=== PATIENT | female | born 1990 | race Two or more races ===

== ENCOUNTER 2022-12-13 17:09 | Emergency (ER) | payer SELFPAY ==
[2022-12-13 17:13] VITALS: BP 126/86; PULSE 91; RESP 16; TEMP 36.1; O2SAT 99; BMI 48.6
--- NOTE | 2022-12-13 17:15 | ED.ABDPAIN ---
HPI - Abdominal Pain General Chief Complaint: Abdominal Pain <STACY Reagan - Last Filed: 12/13/22 17:18> Stated Complaint: headaches <STACY Reagan - Last Filed: 12/13/22 17:18> Time Seen by Provider: 12/13/22 22:05 <STACY Reagan - Last Filed: 12/13/22 17:18> Source: patient <Ebenezer Arnold MD - Last Filed: 12/13/22 22:19> Mode of arrival: ambulatory <Ebenezer Arnold MD - Last Filed: 12/13/22 22:19> Limitations: no limitations <Ebenezer Arnold MD - Last Filed: 12/13/22 22:19> Related Data Allergies/Adverse Reactions: Allergies Allergy/AdvReac Type Severity Reaction Status Date / Time No Known Allergies Allergy Verified 12/13/22 17:17 <STACY Reagan - Last Filed: 12/13/22 17:18> [facility] Social History Social History: Social History Advance Directives: No Advance Directives Information Provided: No <STACY Reagan - Last Filed: 12/13/22 17:18> Physical Exam ED Vital Signs: Vital Signs - 24 hr 12/13/22 17:13 Temperature 97.0 F Pulse Rate 91 Respiratory Rate 16 Blood Pressure 126/86 Pulse Oximetry 99 Oxygen Delivery Method Room Air BMI result Body Mass Index 48.6 <STACY Reagan - Last Filed: 12/13/22 17:18> Vital Signs - 24 hr 12/13/22 17:13 Temperature 97.0 F Pulse Rate 91 Respiratory Rate 16 Blood Pressure 126/86 Pulse Oximetry 99 Oxygen Delivery Method Room Air BMI result Body Mass Index 48.6 <Ebenezer Arnold MD - Last Filed: 12/13/22 22:19> Course Course Course Narrative: RME - 18-jxdq[age]gbc-female presenting today with complaints of suprapubic pressure and urinary frequency x 3 weeks. UA and HCG test ordered. VSS in triage <STACY Reagan - Last Filed: 12/13/22 17:18> Medical Decision Making Lab Data Result Diagrams: 12/13/22 17:48 12/13/22 17:48 <STACY Reagan - Last Filed: 12/13/22 17:18> Labs: Lab Results 12/13/22 12/13/22 12/13/22 Range/Units 17:48 17:48 17:48 WBC 8.4 (4.8-10.8) X10*3/uL RBC 6.12 H (4.20-5.50) X10*6/uL Hgb 13.5 (12.0-16.0) g/dl Hct 42.5 (37.0-47.0) % MCV 69.4 L (80.0-98.0) fL MCH 22.1 L (27.0-33.0) pg MCHC 31.8 (31.0-35.0) g/dl RDW 18.2 H (11.0-16.0) % Plt Count 353 (160-400) X10*3/uL MPV 10.2 (9.4-12.3) fL Immature Gran % (Auto) 0.4 (0.0-0.4) % Neut % (Auto) 58.8 (45-73) % Lymph % (Auto) 28.7 (20-40) % [place] % (Auto) 8.5 (2-11) % Eos % (Auto) 3.0 (0-4) % Baso % (Auto) 0.6 (0-2) % Lymph # (Auto) 2.4 (1.2-4.9) X10*3/uL [place] # (Auto) 0.7 (0.1-1.2) X10*3/uL Eos # (Auto) 0.3 (0.0-0.4) X10*3/uL Baso # (Auto) 0.1 (0.0-0.2) X10*3/uL Abs Immat Gran (auto) 0.03 (0.00-0.03) X10*3/uL Absolute Neuts (auto) 5.0 (2.0-8.3) x10*3/uL Absolute Nucleated RBC 0.000 (0.0-0.012) X10*3/uL Nucleated RBC % (auto) 0.0 (0.0-0.2) /100WBC Sodium 139 (135-145) mmol/L Potassium 4.4 (3.3-5.1) mmol/L Chloride 105 (96-108) mmol/L Carbon Dioxide 27 (22-29) mmol/L Anion Gap 11 L (12-20) BUN 13 (9-16) mg/dL Creatinine 0.84 (0.5-1.4) mg/dL Estim Creat Clear Calc 123.4 Estimated GFR > 60 Random Glucose 152 H (60-115) mg/dL Calcium 9.4 (8.4-10.2) mg/dL Magnesium 1.8 (1.6-2.6) mg/dL Total Bilirubin 0.4 (0.0-1.0) mg/dL Direct Bilirubin < 0.2 (0.0-0.5) mg/dL AST 18 (5-31) U/L ALT 26 (0-31) U/L Alkaline Phosphatase 57 (39-117) U/L Total Protein 7.1 (6.5-8.0) g/dL Albumin 4.3 (3.5-5.0) g/dL Urine Color Yellow Urine Appearance Clear Urine pH 5.5 (5.0-9.0) Ur Specific [place] 1.015 (1.005-1.025) Urine Protein Negative (Neg-Trace) mg/dL Urine Glucose (UA) Negative (Negative) mg/dL Urine Ketones Negative (Negative) mg/dL Urine Blood Moderate (2+) H (Negative) Urine Nitrite Negative (Negative) Ur Leukocyte Esterase Negative (Negative) Urine RBC 0-2 (0-2) /HPF Urine WBC 0-5 (0-5) /HPF Ur Squamous Epith Cells 3-5 (0-2) /HPF Urine Bacteria Trace (None Seen) Hyaline Casts 0-2 (0-2) /LPF Urine Test (NEGATIVE) 12/13/22 Range/Units 17:48 WBC (4.8-10.8) X10*3/uL RBC (4.20-5.50) X10*6/uL Hgb (12.0-16.0) g/dl Hct (37.0-47.0) % MCV (80.0-98.0) fL MCH (27.0-33.0) pg MCHC (31.0-35.0) g/dl RDW (11.0-16.0) % Plt Count (160-400) X10*3/uL MPV (9.4-12.3) fL Immature Gran % (Auto) (0.0-0.4) % Neut % (Auto) (45-73) % Lymph % (Auto) (20-40) % [place] % (Auto) (2-11) % Eos % (Auto) (0-4) % Baso % (Auto) (0-2) % Lymph # (Auto) (1.2-4.9) X10*3/uL [place] # (Auto) (0.1-1.2) X10*3/uL Eos # (Auto) (0.0-0.4) X10*3/uL Baso # (Auto) (0.0-0.2) X10*3/uL Abs Immat Gran (auto) (0.00-0.03) X10*3/uL Absolute Neuts (auto) (2.0-8.3) x10*3/uL Absolute Nucleated RBC (0.0-0.012) X10*3/uL Nucleated RBC % (auto) (0.0-0.2) /100WBC Sodium (135-145) mmol/L Potassium (3.3-5.1) mmol/L Chloride (96-108) mmol/L Carbon Dioxide (22-29) mmol/L Anion Gap (12-20) BUN (9-16) mg/dL Creatinine (0.5-1.4) mg/dL Estim Creat Clear Calc Estimated GFR Random Glucose (60-115) mg/dL Calcium (8.4-10.2) mg/dL Magnesium (1.6-2.6) mg/dL Total Bilirubin (0.0-1.0) mg/dL Direct Bilirubin (0.0-0.5) mg/dL AST (5-31) U/L ALT (0-31) U/L Alkaline Phosphatase (39-117) U/L Total Protein (6.5-8.0) g/dL Albumin (3.5-5.0) g/dL Urine Color Urine Appearance Urine pH (5.0-9.0) Ur Specific [place] (1.005-1.025) Urine Protein (Neg-Trace) mg/dL Urine Glucose (UA) (Negative) mg/dL Urine Ketones (Negative) mg/dL Urine Blood (Negative) Urine Nitrite (Negative) Ur Leukocyte Esterase (Negative) Urine RBC (0-2) /HPF Urine WBC (0-5) /HPF Ur Squamous Epith Cells (0-2) /HPF Urine Bacteria (None Seen) Hyaline Casts (0-2) /LPF Urine Test NEGATIVE (NEGATIVE) <STACY Reagan - Last Filed: 12/13/22 17:18> Lab Results 12/13/22 12/13/22 12/13/22 Range/Units 17:48 17:48 17:48 WBC 8.4 (4.8-10.8) X10*3/uL RBC 6.12 H (4.20-5.50) X10*6/uL Hgb 13.5 (12.0-16.0) g/dl Hct 42.5 (37.0-47.0) % MCV 69.4 L (80.0-98.0) fL MCH 22.1 L (27.0-33.0) pg MCHC 31.8 (31.0-35.0) g/dl RDW 18.2 H (11.0-16.0) % Plt Count 353 (160-400) X10*3/uL MPV 10.2 (9.4-12.3) fL Immature Gran % (Auto) 0.4 (0.0-0.4) % Neut % (Auto) 58.8 (45-73) % Lymph % (Auto) 28.7 (20-40) % [place] % (Auto) 8.5 (2-11) % Eos % (Auto) 3.0 (0-4) % Baso % (Auto) 0.6 (0-2) % Lymph # (Auto) 2.4 (1.2-4.9) X10*3/uL [place] # (Auto) 0.7 (0.1-1.2) X10*3/uL Eos # (Auto) 0.3 (0.0-0.4) X10*3/uL Baso # (Auto) 0.1 (0.0-0.2) X10*3/uL Abs Immat Gran (auto) 0.03 (0.00-0.03) X10*3/uL Absolute Neuts (auto) 5.0 (2.0-8.3) x10*3/uL Absolute Nucleated RBC 0.000 (0.0-0.012) X10*3/uL Nucleated RBC % (auto) 0.0 (0.0-0.2) /100WBC Sodium 139 (135-145) mmol/L Potassium 4.4 (3.3-5.1) mmol/L Chloride 105 (96-108) mmol/L Carbon Dioxide 27 (22-29) mmol/L Anion Gap 11 L (12-20) BUN 13 (9-16) mg/dL Creatinine 0.84 (0.5-1.4) mg/dL Estim Creat Clear Calc 123.4 Estimated GFR > 60 Random Glucose 152 H (60-115) mg/dL Calcium 9.4 (8.4-10.2) mg/dL Magnesium 1.8 (1.6-2.6) mg/dL Total Bilirubin 0.4 (0.0-1.0) mg/dL Direct Bilirubin < 0.2 (0.0-0.5) mg/dL AST 18 (5-31) U/L ALT 26 (0-31) U/L Alkaline Phosphatase 57 (39-117) U/L Total Protein 7.1 (6.5-8.0) g/dL Albumin 4.3 (3.5-5.0) g/dL Urine Color Yellow Urine Appearance Clear Urine pH 5.5 (5.0-9.0) Ur Specific [place] 1.015 (1.005-1.025) Urine Protein Negative (Neg-Trace) mg/dL Urine Glucose (UA) Negative (Negative) mg/dL Urine Ketones Negative (Negative) mg/dL Urine Blood Moderate (2+) H (Negative) Urine Nitrite Negative (Negative) Ur Leukocyte Esterase Negative (Negative) Urine RBC 0-2 (0-2) /HPF Urine WBC 0-5 (0-5) /HPF Ur Squamous Epith Cells 3-5 (0-2) /HPF Urine Bacteria Trace (None Seen) Hyaline Casts 0-2 (0-2) /LPF Urine Test (NEGATIVE) 12/13/22 Range/Units 17:48 WBC (4.8-10.8) X10*3/uL RBC (4.20-5.50) X10*6/uL Hgb (12.0-16.0) g/dl Hct (37.0-47.0) % MCV (80.0-98.0) fL MCH (27.0-33.0) pg MCHC (31.0-35.0) g/dl RDW (11.0-16.0) % Plt Count (160-400) X10*3/uL MPV (9.4-12.3) fL Immature Gran % (Auto) (0.0-0.4) % Neut % (Auto) (45-73) % Lymph % (Auto) (20-40) % [place] % (Auto) (2-11) % Eos % (Auto) (0-4) % Baso % (Auto) (0-2) % Lymph # (Auto) (1.2-4.9) X10*3/uL [place] # (Auto) (0.1-1.2) X10*3/uL Eos # (Auto) (0.0-0.4) X10*3/uL Baso # (Auto) (0.0-0.2) X10*3/uL Abs Immat Gran (auto) (0.00-0.03) X10*3/uL Absolute Neuts (auto) (2.0-8.3) x10*3/uL Absolute Nucleated RBC (0.0-0.012) X10*3/uL Nucleated RBC % (auto) (0.0-0.2) /100WBC Sodium (135-145) mmol/L Potassium (3.3-5.1) mmol/L Chloride (96-108) mmol/L Carbon Dioxide (22-29) mmol/L Anion Gap (12-20) BUN (9-16) mg/dL Creatinine (0.5-1.4) mg/dL Estim Creat Clear Calc Estimated GFR Random Glucose (60-115) mg/dL Calcium (8.4-10.2) mg/dL Magnesium (1.6-2.6) mg/dL Total Bilirubin (0.0-1.0) mg/dL Direct Bilirubin (0.0-0.5) mg/dL AST (5-31) U/L ALT (0-31) U/L Alkaline Phosphatase (39-117) U/L Total Protein (6.5-8.0) g/dL Albumin (3.5-5.0) g/dL Urine Color Urine Appearance Urine pH (5.0-9.0) Ur Specific [place] (1.005-1.025) Urine Protein (Neg-Trace) mg/dL Urine Glucose (UA) (Negative) mg/dL Urine Ketones (Negative) mg/dL Urine Blood (Negative) Urine Nitrite (Negative) Ur Leukocyte Esterase (Negative) Urine RBC (0-2) /HPF Urine WBC (0-5) /HPF Ur Squamous Epith Cells (0-2) /HPF Urine Bacteria (None Seen) Hyaline Casts (0-2) /LPF Urine Test NEGATIVE (NEGATIVE) <Ebenezer Arnold MD - Last Filed: 12/13/22 22:19>
[2022-12-13 17:56] LABS: MANUAL DIFF FLAG NO
[2022-12-13 18:03] LABS: Appearance Urine Clear; Color Urine Yellow; Glucose Urine UA Negative (Negative); Leukocyte Esterase Urine Negative (Negative); Nitrite Urine Negative (Negative); PH 5.5 (5.0-9.0); Specific Gravity - Urine 1.015 (1.005-1.025); UMIC TRIGGER UACC YES; Urine Blood Moderate (2+) (Negative); Urine Ketones Negative (Negative); Urine Protein Negative (Neg-Trace)
[2022-12-13 18:04] LABS: Basophils Absolute Auto 0.1 X10*3/uL (0.0-0.2); Basophils Percent Auto 0.6 % (0-2); Eosinophils Absolute Auto 0.3 X10*3/uL (0.0-0.4); Hematocrit 42.5 % (37.0-47.0); Hemoglobin 13.5 g/dl (12.0-16.0); Imm Gran Abs Auto 0.03 X10*3/uL (0.00-0.03); Imm Gran Pct Auto 0.4 % (0.0-0.4); Lymphocytes Absolute Auto 2.4 X10*3/uL (1.2-4.9); Lymphocytes Percent Auto 28.7 % (20-40); Mean Corpuscular HGB Conc 31.8 g/dl (31.0-35.0); Mean Corpuscular Hemoglobin 22.1 pg (27.0-33.0); Mean Corpuscular Volume 69.4 fL (80.0-98.0); Mean Platelet Volume 10.2 fL (9.4-12.3); Monocytes Absolute Auto 0.7 X10*3/uL (0.1-1.2); Monocytes Percent Auto 8.5 % (2-11); Neutrophils Percent Auto 58.8 % (45-73); Platelet Count 353 X10*3/uL (160-400); Red Blood Count 6.12 X10*6/uL (4.20-5.50); Red Cell Distribution Width 18.2 % (11.0-16.0); White Blood Count 8.4 X10*3/uL (4.8-10.8)
[2022-12-13 18:06] LABS: UPreg QC Valid YES; Urine Pregnancy NEGATIVE (NEGATIVE)
[2022-12-13 18:15] LABS: Bacteria Urine Trace (None Seen); Hyaline Casts Urine 0-2 /LPF (0-2); RBC Urine 0-2 /HPF (0-2); WBC Urine 0-5 /HPF (0-5)
[2022-12-13 18:16] LABS: Alanine Aminotransferase 26 U/L (0-31); Albumin Level 4.3 g/dL (3.5-5.0); Alkaline Phosphatase 57 U/L (39-117); Anion Gap 11 (12-20); Aspartate Amino Transferase 18 U/L (5-31); Bilirubin Direct < 0.2 mg/dL (0.0-0.5); Bilirubin Total 0.4 mg/dL (0.0-1.0); Blood Urea Nitrogen 13 mg/dL (9-16); Calcium 9.4 mg/dL (8.4-10.2); Carbon Dioxide 27 mmol/L (22-29); Chloride 105 mmol/L (96-108); Creatinine Clr Calc Pharmacy 123.4; Estimated Glomerular Filt Rate > 60; Glucose Random 152 mg/dL (60-115); Magnesium 1.8 mg/dL (1.6-2.6); Potassium 4.4 mmol/L (3.3-5.1); Sodium 139 mmol/L (135-145); Total Protein 7.1 g/dL (6.5-8.0)
--- NOTE | 2022-12-13 22:23 | ED_ITS ---
HPI - General Adult General Chief complaint: Abdominal Pain Stated complaint: headaches Time Seen by Provider: 12/13/22 22:05 Source: patient Mode of arrival: ambulatory Limitations: no limitations History of Present Illness HPI narrative: Patient with multiple problems with history of anxiety comes here for 3 weeks of occipital headache upper back pain increased urination jaw pain was seen at [facility] 3 weeks ago diagnosed with dizziness has not seen her PCP for a while no fever no chills no vomiting Related Data Previous Rx's Medication Instructions Recorded dmwlhdgwyy-zvfajcczaxicp-qgpwoiwp 1 cap PO Q6H PRN headache #20 caps 12/13/22 50 mg-300 mg-40 mg capsule (Fioricet) tramadol 50 mg tablet 50 mg PO Q6H PRN pain #20 tabs 12/13/22 Allergies Allergy/AdvReac Type Severity Reaction Status Date / Time No Known Allergies Allergy Verified 12/13/22 17:17 Review of Systems Review of Systems: Yes all other systems are reviewed and are negative [facility] Social History Social History Smoked in Last 30 Days: No Use of substances other than those prescribed or required for medical reasons: No Advance Directives: No Advance Directives Information Provided: No Physical Exam ED Vital Signs: Vital Signs - 24 hr 12/13/22 17:13 Temperature 97.0 F Pulse Rate 91 Respiratory Rate 16 Blood Pressure 126/86 Pulse Oximetry 99 Oxygen Delivery Method Room Air BMI result Body Mass Index 48.6 Appearance: Alert. Oriented X3. No acute distress. Anxious Eyes: PERRLA, No Nystagmus ENT: Pharynx normal. Oral Mucosa moist temporal artery nontender Neck: Normal inspection. Neck supple. CVS: Normal heart rate and rhythm. Pulses normal. Respiratory: No respiratory distress. Equal air entry bilateral, no wheezing/rales/rhonchi Abdomen: Soft and nontender. Bowel sounds are present, no mass palpable, no CVA tenderness Skin: Skin warm and dry. Normal skin color. Normal skin turgor. Extremities: No lower extremity edema. No calf tenderness back: Multiple trigger point tenderness upper back Neuro: Oriented X 3. No motor deficit. No sensory deficit.No cerebellar signs , cranial nerves II-XII intact Medications Administered Discontinued Medications Generic Name Dose Route Start Last Admin Trade Name Freq PRN Reason Stop Dose Admin Acetaminophen/Butalbital/Caffeine 1 tab 12/13/22 22:23 12/13/22 22:39 Butalb/Acetamin/Caff 50/325/40 Tablet PO 12/13/22 22:24 1 tab ONCE ONE Administration Tramadol HCl 50 mg 12/13/22 22:23 12/13/22 22:38 Tramadol Hcl 50 Mg Tablet PO 12/13/22 22:24 50 mg ONCE ONE Administration Medical Decision Making Medical Decision Making [facility] Narrative: Patient has multiple complaints clinically patient has anxiety with fibromyalgia trigger points in a perfect also possible she might have complex migraine versus cervical muscle pain. Will discharge patient home on Fioricet and tramadol lab workup was normal Lab Data [facility] Lab Attestation statement: I reviewed the patient's lab results. 12/13/22 17:48 12/13/22 17:48 Labs: Lab Results 12/13/22 12/13/22 12/13/22 Range/Units 17:48 17:48 17:48 WBC 8.4 (4.8-10.8) X10*3/uL RBC 6.12 H (4.20-5.50) X10*6/uL Hgb 13.5 (12.0-16.0) g/dl Hct 42.5 (37.0-47.0) % MCV 69.4 L (80.0-98.0) fL MCH 22.1 L (27.0-33.0) pg MCHC 31.8 (31.0-35.0) g/dl RDW 18.2 H (11.0-16.0) % Plt Count 353 (160-400) X10*3/uL MPV 10.2 (9.4-12.3) fL Immature Gran % (Auto) 0.4 (0.0-0.4) % Neut % (Auto) 58.8 (45-73) % Lymph % (Auto) 28.7 (20-40) % [place] % (Auto) 8.5 (2-11) % Eos % (Auto) 3.0 (0-4) % Baso % (Auto) 0.6 (0-2) % Lymph # (Auto) 2.4 (1.2-4.9) X10*3/uL [place] # (Auto) 0.7 (0.1-1.2) X10*3/uL Eos # (Auto) 0.3 (0.0-0.4) X10*3/uL Baso # (Auto) 0.1 (0.0-0.2) X10*3/uL Abs Immat Gran (auto) 0.03 (0.00-0.03) X10*3/uL Absolute Neuts (auto) 5.0 (2.0-8.3) x10*3/uL Absolute Nucleated RBC 0.000 (0.0-0.012) X10*3/uL Nucleated RBC % (auto) 0.0 (0.0-0.2) /100WBC Sodium 139 (135-145) mmol/L Potassium 4.4 (3.3-5.1) mmol/L Chloride 105 (96-108) mmol/L Carbon Dioxide 27 (22-29) mmol/L Anion Gap 11 L (12-20) BUN 13 (9-16) mg/dL Creatinine 0.84 (0.5-1.4) mg/dL Estim Creat Clear Calc 123.4 Estimated GFR > 60 Random Glucose 152 H (60-115) mg/dL Calcium 9.4 (8.4-10.2) mg/dL Magnesium 1.8 (1.6-2.6) mg/dL Total Bilirubin 0.4 (0.0-1.0) mg/dL Direct Bilirubin < 0.2 (0.0-0.5) mg/dL AST 18 (5-31) U/L ALT 26 (0-31) U/L Alkaline Phosphatase 57 (39-117) U/L Total Protein 7.1 (6.5-8.0) g/dL Albumin 4.3 (3.5-5.0) g/dL Urine Color Yellow Urine Appearance Clear Urine pH 5.5 (5.0-9.0) Ur Specific [place] 1.015 (1.005-1.025) Urine Protein Negative (Neg-Trace) mg/dL Urine Glucose (UA) Negative (Negative) mg/dL Urine Ketones Negative (Negative) mg/dL Urine Blood Moderate (2+) H (Negative) Urine Nitrite Negative (Negative) Ur Leukocyte Esterase Negative (Negative) Urine RBC 0-2 (0-2) /HPF Urine WBC 0-5 (0-5) /HPF Ur Squamous Epith Cells 3-5 (0-2) /HPF Urine Bacteria Trace (None Seen) Hyaline Casts 0-2 (0-2) /LPF Urine Test (NEGATIVE) 12/13/22 Range/Units 17:48 WBC (4.8-10.8) X10*3/uL RBC (4.20-5.50) X10*6/uL Hgb (12.0-16.0) g/dl Hct (37.0-47.0) % MCV (80.0-98.0) fL MCH (27.0-33.0) pg MCHC (31.0-35.0) g/dl RDW (11.0-16.0) % Plt Count (160-400) X10*3/uL MPV (9.4-12.3) fL Immature Gran % (Auto) (0.0-0.4) % Neut % (Auto) (45-73) % Lymph % (Auto) (20-40) % [place] % (Auto) (2-11) % Eos % (Auto) (0-4) % Baso % (Auto) (0-2) % Lymph # (Auto) (1.2-4.9) X10*3/uL [place] # (Auto) (0.1-1.2) X10*3/uL Eos # (Auto) (0.0-0.4) X10*3/uL Baso # (Auto) (0.0-0.2) X10*3/uL Abs Immat Gran (auto) (0.00-0.03) X10*3/uL Absolute Neuts (auto) (2.0-8.3) x10*3/uL Absolute Nucleated RBC (0.0-0.012) X10*3/uL Nucleated RBC % (auto) (0.0-0.2) /100WBC Sodium (135-145) mmol/L Potassium (3.3-5.1) mmol/L Chloride (96-108) mmol/L Carbon Dioxide (22-29) mmol/L Anion Gap (12-20) BUN (9-16) mg/dL Creatinine (0.5-1.4) mg/dL Estim Creat Clear Calc Estimated GFR Random Glucose (60-115) mg/dL Calcium (8.4-10.2) mg/dL Magnesium (1.6-2.6) mg/dL Total Bilirubin (0.0-1.0) mg/dL Direct Bilirubin (0.0-0.5) mg/dL AST (5-31) U/L ALT (0-31) U/L Alkaline Phosphatase (39-117) U/L Total Protein (6.5-8.0) g/dL Albumin (3.5-5.0) g/dL Urine Color Urine Appearance Urine pH (5.0-9.0) Ur Specific [place] (1.005-1.025) Urine Protein (Neg-Trace) mg/dL Urine Glucose (UA) (Negative) mg/dL Urine Ketones (Negative) mg/dL Urine Blood (Negative) Urine Nitrite (Negative) Ur Leukocyte Esterase (Negative) Urine RBC (0-2) /HPF Urine WBC (0-5) /HPF Ur Squamous Epith Cells (0-2) /HPF Urine Bacteria (None Seen) Hyaline Casts (0-2) /LPF Urine Test NEGATIVE (NEGATIVE) Discharge Plan Discharge Clinical Impression: Fibromyalgia, Migraine Patient Disposition: Home, Self-Care Instructions: Migraine Headache (ED), Fibromyalgia (ED) Additional Instructions: Likely fibromyalgia and musculoskeletal pain possibly migraine Take medication as advised Avoid stress Prescriptions: New tramadol 50 mg tablet 50 mg PO Q6H PRN (Reason: pain) Qty: 20 0RF evbcrzvdvn-yfpolpxgdebao-bkqz [Fioricet] 50-300-40 mg capsule 1 cap PO Q6H PRN (Reason: headache) Qty: 20 0RF Stand Alone Forms: Work/School Release Interventions: ED Discharge Assessment Last Done: 12/13/22 23:36 Discharge Date/Time: 12/13/22 23:37
[2022-12-13] MEDS: traMADoL HCL 50 MG TABLET PO (22:38)
[2022-12-13] MEDS: Butalb/Acetamin/Caff 50/325/40 TABLET 1 TAB PO (22:39)
--- NOTE | 2022-12-13 22:52 | PC.NURSE ---
Pt medicated per dec for headache, Light turned down and call lim in reach.
== END 2022-12-13 23:37 | disposition home or self-care (01) ==
PROVIDERS: Physician Assistant; Emergency Provider Internal Medicine
DX: R51.9 Headache, unspecified (principal); F41.1 Generalized anxiety disorder; F43.0 Acute stress reaction; Z79.899 Other long term (current) drug therapy
CPT/HCPCS: 36415; 80048; 80076; 81001; 81025; 83735; 85025; 99283; 99284

== ENCOUNTER 2023-05-08 10:10 | Emergency (ER) | payer SELFPAY ==
[2023-05-08 10:22] VITALS: BP 144/80; PULSE 88; RESP 16; TEMP 36.7; O2SAT 96; BMI 48.7
[2023-05-08 10:54] LABS: IDNOW Serial# 08D9AD1C; Strep A Nucleic Acid Positive (Negative)
--- NOTE | 2023-05-08 11:26 | ED_ITS ---
HPI - URI/Sore Throat General Chief Complaint: Upper Respiratory Symptoms Stated Complaint: fever, swollen neck Time Seen by Provider: 05/08/23 11:26 Source: patient Mode of arrival: ambulatory Limitations: no limitations History of Present Illness HPI Narrative: 33 yo female with no known medical history presents the ER with complaints of sore throat and fever. Per patient on Sunday and Sunday she had tactile temps. Developed sore throat with painful swallowing and rhinorrhea. No cough, chest pain, shortness of breath. Related Data Previous Rx's Medication Instructions Recorded hqswqdclxy-szjzqqguhqdfi-ofkcncok 1 cap PO Q6H PRN headache #20 caps 12/13/22 50 mg-300 mg-40 mg capsule (Fioricet) tramadol 50 mg tablet 50 mg PO Q6H PRN pain #20 tabs 12/13/22 amoxicillin 500 mg tablet 500 mg PO BID #20 tabs 05/08/23 ibuprofen 800 mg tablet 800 mg PO Q8H PRN pain #30 tabs 05/08/23 prednisone 20 mg tablet 40 mg PO DAILY #10 tabs 05/08/23 Allergies Allergy/AdvReac Type Severity Reaction Status Date / Time No Known Allergies Allergy Verified 12/13/22 17:17 Review of Systems Review of Systems: Yes all other systems are reviewed and are negative Constitutional: Constitutional: Reports no additional constitutional complaints, Denies body ache(s), Denies chills, Reports fever(s), Denies headache(s) and Denies weakness Eyes: Eyes: Reports no additional eye complaints and Denies change in vision ENT: Reports system reviewed and no additional complaints, except as documente d, Denies dizziness, Denies headache(s), Denies nasal congestion, Reports nasal discharge, Denies neck pain and Reports sore throat Cardiovascular: Cardiovascular: Reports no additional cardiovascular complaints, Denies chest pain, Denies leg edema and Denies dyspnea Respiratory: Respiratory: Reports no additional respiratory complaints, Denies cough and Denies dyspnea Gastrointestinal: Gastrointestinal: Reports no additional gastrointestinal complaints, Denies abdominal pain, Denies diarrhea, Denies nausea and Denies vomiting Genitourinary: Genitourinary: Reports no additional female genitourinary complaints and Denies urinary incontinence Musculoskeletal: Musculoskeletal: Reports no additional musculoskeletal complaints, Denies back pain, Denies arthralgias, Denies joint swelling, Denies neck pain, Denies numbness and Denies tingling Integumentary/Breasts: Skin/Breast: Reports system reviewed and no additional complaints, except as docu and Denies rash Neurologic: Reports system reviewed and no additional complaints, except as d ocumented, Denies Abnormal speech present, Denies dizziness, Denies headache(s), Denies numbness, Denies tingling and Denies weakness [facility] Past Medical History Attestation statement: The following information was validated with the patient. Source: old records reviewed and nursing notes reviewed Physical Exam Vital Signs: Vital Signs: Last Vital Signs Temp 98.1 F 05/08/23 10:22 Pulse 88 05/08/23 10:22 Resp 16 05/08/23 10:22 BP 144/80 H 05/08/23 10:22 Pulse Ox 96 05/08/23 10:22 O2 Del Method Room Air 05/08/23 10:22 BMI result Body Mass Index 48.7 Const: General: cooperative, healthy appearing, comfortable and no acute distress Orientation/consciousness: patient oriented x3 Limitations: no limitations HEENT: Head: Yes normal to inspection Ears: hearing grossly normal bilaterally and TM's normal bilaterally General nose exam: Normal external nose present Face and sinus: Yes normal facial exam Mouth: Normal oral and palatal mucosa present Throat: Yes posterior oropharynx normal, Yes uvula midline, Yes abnormal tonsil (Bilateral tonsillar erythema/swelling ) and No peritonsillar mass Eyes: General: appearance normal, both eyes and all related structures Pupils: Equal, round and reactive pupils present Neck: Other: Bilateral submandibular lymphadenopathy Neck: Yes normal visual inspection, Yes full ROM and Yes no meningeal signs Chest: Chest palpation & inspection: normal inspection of the chest Resp: Effort & Inspection: normal respiratory effort Auscultation: clear to auscultation bilaterally Cardio: Rate: regular rate Rhythm: regular rhythm Peripheral pulses: Peripheral pulses 2+ throughout GI: Inspection: Yes normal to inspection Palpation (GI): Soft to palpation and nontender Auscultation: normal bowel sounds Back/Spine/Pelvis: Thoracic/Lumbar Spine: thoracic and lumbar spine normal to inspection Skin: General skin exam: no rashes or lesions noted Neuro: General: patient oriented x3, no meningeal signs, no focal motor deficits and normal sensation to monofilament Cranial nerves: Yes Equal, round and reactive pupils present Cognition (Neuro): normal cognition Speech: No Abnormal speech present Gait exam (Neuro): Normal gait present Motor exam (neuro): 5/5 motor strength present throughout Extrem: General: Yes normal to inspection Course Course Course Narrative: Strep screen is positive. Patient will be initiated on oral antibiotics and prednisone as well as ibuprofen p.r.n.. Reviewed worrisome signs and symptoms of when to return to the emergency room. Comfortable plan for discharge home. Medical Decision Making Medical Decision Making [facility] Narrative: 33 yo female here with sore throat/fever x 4 days On exam patient has bilateral tonsillar erythema and swelling. Uvula is midline. Tolerating secretions. Patient has bilateral submandibular lymphadenopathy. Will send testing for strep Differential Diagnosis Differential Diagnoses: The differential diagnosis associated with the presentation includes RPA, epiglottitis, [employer], ludwigs angina, meningitis-no evidence of lymphadenopathy, meningeal signs, tolerating secretions normally with no drooling, FROM of neck Lab Data [facility] Lab Attestation statement: I reviewed the patient's lab results. Strep + Labs: Lab Results 05/08/23 Range/Units 10:30 S. pyogenes GrpA BARTOLO Positive A (Negative) Prescription Management I considered prescription management with: Antibiotic Discharge Plan Discharge Clinical Impression: Pharyngitis Patient Disposition: Home, Self-Care Instructions: Pharyngitis (ED) Additional Instructions: Change toothbrush after 24 hrs return for diff swallowing, diff breathing, inability to drink liquids Prescriptions: New amoxicillin 500 mg tablet 500 mg PO BID Qty: 20 0RF ibuprofen 800 mg tablet 800 mg PO Q8H PRN (Reason: pain) Qty: 30 0RF prednisone 20 mg tablet 40 mg PO DAILY Qty: 10 0RF No Action tramadol 50 mg tablet 50 mg PO Q6H PRN (Reason: pain) Qty: 20 0RF [id number] [Fioricet] 50-300-40 mg capsule 1 cap PO Q6H PRN (Reason: headache) Qty: 20 0RF Referrals: Physician,None [Primary Care Provider] - 1 week Stand Alone Forms: Work/School Release Interventions: ED Discharge Assessment Last Done: 05/08/23 11:40
== END 2023-05-08 13:45 | disposition home or self-care (01) ==
LOC: HO.ED 13:32
PROVIDERS: Emergency Provider Emergency Medicine
DX: J02.0 Streptococcal pharyngitis (principal); R50.9 Fever, unspecified
CPT/HCPCS: 87651; 99282; 99283

== ENCOUNTER 2024-10-24 17:24 | Emergency (ER) | payer SELFPAY ==
[2024-10-24 17:30] VITALS: BP 137/95; PULSE 74; RESP 20; TEMP 36.2; O2SAT 100; BMI 48.7
--- NOTE | 2024-10-24 17:30 | ED.GENADULT ---
HPI - General Adult General Chief complaint: Ear Problems Stated complaint: R ear pressure, can't hear out of that ear Time Seen by Provider: 10/24/24 17:34 Source: patient Mode of arrival: ambulatory Limitations: no limitations History of Present Illness ED Provider: Kingsley BENNETT narrative: Patient is a 34-year-old female presenting to the emergency department with right ear pain and pressure for the past 3 days, states decreased hearing to right ear. Denies any discharge or drainage. Denies fevers. Recently had URI symptoms. Took a dose of leftover penicillin which she had at home with little improvement. complaint: Ear pain Onset (ago): day(s) Related Data Previous Rx's ?Medication ?Instructions ?Recorded uofevqsouo-eokxhjvnnmwcd-slmvvajx 1 cap PO Q6H PRN headache #20 caps 12/13/22 50 mg-300 mg-40 mg capsule (Fioricet) tramadol 50 mg tablet 50 mg PO Q6H PRN pain #20 tabs 12/13/22 amoxicillin 500 mg tablet 500 mg PO BID #20 tabs 05/08/23 ibuprofen 800 mg tablet 800 mg PO Q8H PRN pain #30 tabs 05/08/23 prednisone 20 mg tablet 40 mg (2 x 20 mg) PO DAILY #10 tabs 05/08/23 amoxicillin 875 mg-potassium 1 tab PO BID #14 tabs 10/24/24 clavulanate 125 mg tablet Allergies Allergy/AdvReac Type Severity Reaction Status Date / Time No Known Allergies Allergy Verified 10/24/24 17:34 Review of Systems Review of Systems: As per HPI Yes all other systems are reviewed and are negative Constitutional: Constitutional: Reports as per HPI [facility] Social History Social History Advance Directives: No Advance Directives Information Provided: No Do you have a plan to hurt others: No Plan Physical Exam ED Vital Signs: Vital Signs - 24 hr 10/24/24 17:30 10/24/24 17:44 Temperature 97.2 F 97.2 F Pulse Rate 74 74 Respiratory Rate 20 20 Blood Pressure 137/95 H 137/95 H Pulse Oximetry 100 100 Oxygen Delivery Method Room Air Room Air BMI result Body Mass Index 48.7 Vital signs have been reviewed and appear to be correct. Blood pressure normal. Heart rate normal. Respiratory rate normal. Temperature normal. Oxygen saturation normal. Const General: cooperative, healthy appearing and no acute distress Orientation/consciousness: oriented to person, oriented to place, oriented to time and patient oriented x3 Limitations: no limitations HENMT Head: Yes normocephalic and Yes atraumatic Ears: external ears normal, TM normal on the left, EAC's normal, mastoids normal bilaterally, no periauricular adenopathy and TM abnormal bulging on the right, wth effusion serous on the right and erythematous on the right General nose exam: Normal external nose present Face and sinus: Yes face symmetric Mouth: oropharynx normal and moist mucous membranes Throat: Yes uvula midline Eyes Pupils: Equal, round and reactive pupils present Neck Neck: Yes normal visual inspection, Yes no lymphadenopathy and Yes supple Resp Effort & Inspection: normal respiratory effort and able to speak in complete sentences Auscultation: clear to auscultation bilaterally Cardio Rate: regular rate Rhythm: regular rhythm Heart sounds: S1 normal heart sound present and S2 normal heart sound present GI Palpation (GI): Soft to palpation and nontender Auscultation: normoactive bowel sounds General: Yes no CVA tenderness Back/Spine/Pelvis Back: no CVA tenderness Skin General skin exam: elasticity normal and turgor normal Neuro General: oriented to person, oriented to place, oriented to time, patient oriented x3, moves all extremities, no focal motor deficits and CN's II-XI intact bilaterally Cranial nerves: Yes Equal, round and reactive pupils present Cognition (Neuro): normal cognition Extrem General: Yes full ROM, Yes no pedal edema and Yes no calf tenderness Psych Mental Status: mental status grossly normal Affect: normal affect Thought process: Normal thought process present Medical Decision Making Medical Decision Making MDM Narrative: Patient is a 34-year-old female presenting to the emergency department with right ear pain and pressure for the past 3 days, states decreased hearing to right ear. On exam patient is awake, A+Ox3, VS WNL, afebrile, normal neurological exam without focal deficits, physical exam findings as above. Given reported symptoms and physical exam findings, initial differential includes but is not limited to . Labs notable for (specific to DDX) . X-ray/CT notable for . My interpretation is in agreement with the radiologist's interpretation. Low suspicion for/unlikely . *Considered admission if any of the DDX would qualify pt for admission *Consider CC *U/S-considered CT?, other tests considered Discharge Plan Discharge Clinical Impression: Otitis media Qualifiers: Laterality: right Patient Disposition: Home, Self-Care Instructions: Ear Infection (ED) Additional Instructions: You were evaluated in the emergency department today for ear pain. Your evaluation suggests that your pain is due to an ear infection. Please take your prescribed antibiotics as directed for the full course of the medication. We also recommend that you use nasal saline spray several times daily. You can apply warm compresses to the area for 10-15 minutes at a time several times daily. We recommend that you take 650 mg of Tylenol or 600 mg of ibuprofen every 6 hours as needed. If necessary, you can alternate these medications every 3 hours. For example, at 9:00 a.m. take Tylenol, then at noon take ibuprofen, then at 3:00 p.m. take Tylenol, etc.. Please follow up with your primary care provider within two days. Return to the emergency department if you experience hearing loss, discharge from your ear, headaches, fevers, recurrent vomiting, or any other concerning symptoms. Prescriptions: New amoxicillin-pot clavulanate 875-125 mg tablet 1 tab PO BID Qty: 14 0RF No Action tramadol 50 mg tablet 50 mg PO Q6H PRN (Reason: pain) Qty: 20 0RF itnqctjhoc-rnensftrdlvde-zxxs [Fioricet] 50-300-40 mg capsule 1 cap PO Q6H PRN (Reason: headache) Qty: 20 0RF amoxicillin 500 mg tablet 500 mg PO BID Qty: 20 0RF ibuprofen 800 mg tablet 800 mg PO Q8H PRN (Reason: pain) Qty: 30 0RF prednisone 20 mg tablet 40 mg PO DAILY Qty: 10 0RF Interventions: ED Discharge Assessment Last Done: 10/24/24 17:44 Discharge Date/Time: 10/24/24 17:45 Print Language: Belarusian
[2024-10-24 17:44] VITALS: BP 137/95; PULSE 74; RESP 20; TEMP 36.2; O2SAT 100
== END 2024-10-24 17:45 | disposition home or self-care (01) ==
PROVIDERS: Emergency Provider Emergency Medicine
DX: H66.91 Otitis media, unspecified, right ear (principal); H92.01 Otalgia, right ear
CPT/HCPCS: 99282; 99283

== ENCOUNTER 2024-10-27 16:52 | Emergency (ER) | payer SELFPAY ==
--- NOTE | ~2024-10-27 | CT_ITS ---
CLINICAL HISTORY: worsening right ear infection. mastoiditis? CT IAC without contrast Comparison: None Findings: Soft tissue in the right middle ear with thickening of the imaged right tympanic membrane. No right-sided ossicle erosion or malalignment of the imaged ossicles. Expected osseous formation of the right cochlea. No right-sided semi circular canal dehiscence. Left middle ear is well aerated. No ossicle erosion or malalignment. Expected osseous formation of the left-sided cochlea. No left-sided semi circular canal dehiscence. Bilateral mastoid air cells are well aerated. Imaged portions of cranial nerves VII are unremarkable. Fluid and mucosal thickening of the paranasal sinuses with air-fluid level of the imaged right maxillary sinus. IMPRESSION: 1. Bilateral mastoid air cells are well aerated at this time. 2. Fluid in the right middle ear. Differential considerations include right-sided otitis media. No underlying ossicle erosion at this time. 3. Air-fluid level in right maxillary sinus as can be associated with sinusitis. This document has been electronically signed by: Slade Monsalve MD on 10/27/2024 19:32:25
[2024-10-27 17:14] VITALS: BP 169/87; PULSE 83; RESP 20; TEMP 36.6; O2SAT 100; BMI 41.6
--- NOTE | 2024-10-27 17:19 | ED.GENADULT ---
HPI - General Adult General Chief complaint: Ear Problems Stated complaint: Seen recently - reaction to meds? Source: patient and old records reviewed Mode of arrival: ambulatory Limitations: no limitations History of Present Illness ED Provider: YUNG BENNETT narrative: 34 yo female with no PMH here with R ear pain since Sunday now area in front and back of ear is more itchy and red it feels hot. She is compliant with all antibiotics. This has never happened before. She does not have diabetes. She has not had a fever MD complaint: ear pain Onset (ago): day(s) (4) Location: face Radiation: non-radiation Severity: moderate Quality: burning Pain Consistency: intermittent Relieving factors: none Exacerbating factors: movement Associated symptoms: denies other symptoms Treatments prior to arrival: none Related Data Previous Rx's ?Medication ?Instructions ?Recorded kpsftxehmb-ifiivuwgyeptk-gtrbtcxu 1 cap PO Q6H PRN headache #20 caps 12/13/22 50 mg-300 mg-40 mg capsule (Fioricet) tramadol 50 mg tablet 50 mg PO Q6H PRN pain #20 tabs 12/13/22 amoxicillin 500 mg tablet 500 mg PO BID #20 tabs 05/08/23 ibuprofen 800 mg tablet 800 mg PO Q8H PRN pain #30 tabs 05/08/23 prednisone 20 mg tablet 40 mg (2 x 20 mg) PO DAILY #10 tabs 05/08/23 amoxicillin 875 mg-potassium 1 tab PO BID #14 tabs 10/24/24 clavulanate 125 mg tablet levofloxacin 750 mg tablet 750 mg PO DAILY #7 tabs 10/27/24 ofloxacin 0.3 % ear drops 10 drp otic (ears) DAILY 7 days #5 10/27/24 mL prednisone 20 mg tablet 40 mg (2 x 20 mg) PO DAILY 5 days 10/27/24 #10 tabs Allergies Allergy/AdvReac Type Severity Reaction Status Date / Time No Known Allergies Allergy Verified 10/27/24 17:15 Review of Systems Review of Systems: Constitutional : No Fever, No Chills, No Fatigue ENT/Mouth : No sore throat, No Rhinorrhea Eyes: No Eye Pain, No Swelling, No Redness, pos ear pain Cardiovascular : No Chest Pain, No SOB, No Dyspnea on Exertion Respiratory : No Cough, No Sputum Gastrointestinal : No Nausea, No Vomiting, No Diarrhea, No abdominal Pain Genitourinary : No Dysuria, No Urinary Frequency, No Hematuria, Musculoskeletal : No joint pain, No Myalgias, No Joint Swelling Skin : No Skin Lesions, No rash Neuro : No Weakness, No Numbness, No Dizziness, no Headache All other systems reviewed and are negative [facility] Past Medical History Attestation statement: The following information was validated with the patient. Source: old records reviewed Medical History (Updated 10/28/24 @ 00:01 by Pilar Ellis) Ear infection Social History Social History (Updated 10/27/24 @ 21:31 by aRquel Shane DO) Patient Tobacco Use Status: Never used Tobacco Advance Directives: No Advance Directives Information Provided: No Physical Exam ED Vital Signs: Vital Signs - 24 hr 10/27/24 17:14 10/27/24 21:33 Temperature 97.8 F 97.8 F Pulse Rate 83 83 Respiratory Rate 20 20 Blood Pressure 169/87 H 169/87 H Pulse Oximetry 100 100 Oxygen Delivery Method Room Air Room Air BMI result Body Mass Index 41.6 Appearance: Alert. Oriented X3. No acute distress. Eyes: Pupils equal, round and reactive to light. ENT: Pharynx normal. R maxillary ttp R TM bulging with effusion, R ear area not the actual pinna but the area behind ear and front of area appears pink and rased it is itchy, the canal is mildly swollen no perforation seen Neck: Normal inspection. Neck supple. CVS: Normal heart rate and rhythm. Pulses normal. Respiratory: No respiratory distress. Breath sounds normal. Abdomen: Soft and non-tender. Skin: Skin warm and dry. Normal skin color. Extremities: No lower extremity edema. Neuro: Oriented X 3. No motor deficit. No sensory deficit. CN2-12 intact Course Course Course Narrative: RME: 34-year-old female presents to ED for worsening right ear pain and new right ear redness. Patient was discharged with antibiotics for right ear infection on the 3rd, but then last night started having worsening right ear pain with redness. Physical exam positive for right outer ear erythema but tenderness around mastoid area. No lesions on examined of right ear. No mastoid fluctuance. CT scan ordered Medical Decision Making Medical Decision Making MDM Narrative: 34 yo female no PMH here with external and internal ear canal and some itchiness to the ear she is not toxic has no signs of systemic symptoms will broaden abx to cover pseudomonas add on drops and PO prednisone. CT scan of mastoid negative. Pinna is normal the redness and swelling is posterior to the ear and in preuricular area Differential Diagnosis Differential Diagnoses: The differential diagnosis associated with the presentation includes AOM, external ear infection Admission/Observation Consideration of admission/observation: Escalation of care including admission/observation considered not toxic can be managed at home Independent Interpretation I performed an independent interpretation of an: CT Scan (normal mastoid) Radiology Impression Discussion of test interpretation with radiology: I have reviewed the radiologist's reading. External Record Review External record reviewed: Outpatient record Prescription Management I considered prescription management with: Antibiotic and Other Discharge Plan Discharge Clinical Impression: Otitis externa, Otitis media Patient Disposition: Home, Self-Care Instructions: Otitis Externa (ED), Ear Infection (ED) Additional Instructions: take amoxicillin and the new antibiotic return for any worsening symptoms or concerns no exercise while on new antibiotic CT scan shows R sinus ds but normal mastoid Prescriptions: New levofloxacin 750 mg tablet 750 mg PO DAILY Qty: 7 0RF ofloxacin 0.3 % drops 10 drp otic (ears) DAILY 7 Days Qty: 5 0RF prednisone 20 mg tablet 40 mg PO DAILY 5 Days Qty: 10 0RF No Action tramadol 50 mg tablet 50 mg PO Q6H PRN (Reason: pain) Qty: 20 0RF qowcpnjwoq-caqsxqbalrekr-bjwf [Fioricet] 50-300-40 mg capsule 1 cap PO Q6H PRN (Reason: headache) Qty: 20 0RF amoxicillin 500 mg tablet 500 mg PO BID Qty: 20 0RF ibuprofen 800 mg tablet 800 mg PO Q8H PRN (Reason: pain) Qty: 30 0RF prednisone 20 mg tablet 40 mg PO DAILY Qty: 10 0RF amoxicillin-pot clavulanate 875-125 mg tablet 1 tab PO BID Qty: 14 0RF Interventions: ED Discharge Assessment Last Done: 10/27/24 21:33 Discharge Date/Time: 10/27/24 21:34 Print Language: Greenlandic
--- NOTE | 2024-10-27 21:24 | PC.NURSE ---
Dr. Shane evaluating patient at this time.
[2024-10-27 21:33] VITALS: BP 169/87; PULSE 83; RESP 20; TEMP 36.6; O2SAT 100
== END 2024-10-27 21:34 | disposition home or self-care (01) ==
LOC: HO.ED 21:30
PROVIDERS: Emergency Provider Emergency Medicine
DX: H60.91 Unspecified otitis externa, right ear (principal); H66.91 Otitis media, unspecified, right ear; H92.01 Otalgia, right ear
CPT/HCPCS: 70481; 99282; 99284

== ENCOUNTER → 2024-10-27 17:18 | Outpatient (BNV) | payer SELFPAY | PROVIDERS: Visit Provider Radiology Neuroradiology | DX: H66.91 Otitis media, unspecified, right ear (principal) | CPT/HCPCS: 70480 ==

== ENCOUNTER 2025-03-25 02:49 | Emergency (ER) | payer SELFPAY ==
--- NOTE | ~2025-03-25 | XR_ITS ---
CLINICAL HISTORY: cough, sob 1 view chest Comparison: None Findings: Low inspiration. Resultant mild vascular crowding centrally with subsegmental atelectasis. No consolidation or pneumothorax/effusion. Heart size normal. No evidence of heart failure. No acute fractures. No mediastinal shift. Bilateral nipple piercings. Impression: 1. Low inspiration with central vascular crowding and subsegmental atelectasis. 2. No acute cardiopulmonary disease. This document has been electronically signed by: Al Adamson MD on 03/25/2025 05:04:21
[2025-03-25 03:05] VITALS: BP 116/59; PULSE 87; RESP 20; TEMP 36.7; O2SAT 97; BMI 44.3
[2025-03-25 04:09] LABS: IDNOW Serial# 6674DD1D; Strep A Nucleic Acid Negative (Negative)
[2025-03-25 04:18] LABS: COVID-19 Test Negative (Negative); IDNOW Serial# 58CA691E
[2025-03-25 04:28] LABS: IDNOW Serial# 6674DD1D; Influenza A Negative (Negative)
[2025-03-25 04:29] LABS: Influenza B2 Negative (Negative)
--- NOTE | 2025-03-25 04:49 | ED_ITS ---
HPI - General Adult General Chief complaint: General Medical Stated complaint: panic attack Time Seen by Provider: 03/25/25 04:42 Source: patient Mode of arrival: ambulatory Limitations: no limitations History of Present Illness ED Provider: Dr. Kathryn Bro HPI narrative: Patient comes to the emergency room complaining mainly of a panic attack. According to the patient's, for several days she has had cough, URI symptoms, sore throat. Patient states that she has been coughing quite a bit. Denies fever chills. Patient states that yesterday she coughed quite a bit which made her vomit, noticed a bit of blood in the vomitus. Patient states that this made her go into a panic attack and came to the emergency room. Patient denies any abdominal pain, any chest pain. No shortness of breath at this time. Related Data Previous Rx's ?Medication ?Instructions ?Recorded rlobzrnhmz-xfqkijbjpgfyy-huptqnda 1 cap PO Q6H PRN headache #20 caps 12/13/22 50 mg-300 mg-40 mg capsule (Fioricet) tramadol 50 mg tablet 50 mg PO Q6H PRN pain #20 tabs 12/13/22 amoxicillin 500 mg tablet 500 mg PO BID #20 tabs 05/08/23 ibuprofen 800 mg tablet 800 mg PO Q8H PRN pain #30 tabs 05/08/23 prednisone 20 mg tablet 40 mg (2 x 20 mg) PO DAILY #10 tabs 05/08/23 amoxicillin 875 mg-potassium 1 tab PO BID #14 tabs 10/24/24 clavulanate 125 mg tablet levofloxacin 750 mg tablet 750 mg PO DAILY #7 tabs 10/27/24 ofloxacin 0.3 % ear drops 10 drp otic (ears) DAILY 7 days #5 10/27/24 mL prednisone 20 mg tablet 40 mg (2 x 20 mg) PO DAILY 5 days 10/27/24 #10 tabs Allergies Allergy/AdvReac Type Severity Reaction Status Date / Time No Known Allergies Allergy Verified 03/25/25 03:08 Review of Systems 2 Review of Systems: Constitutional : No Weight loss, No Fever, No Chills, No Night Sweats, No Fatigue, No Malaise ENT/Mouth : No Hearing loss, No Ear Pain, complaining of nasal congestion, complaining of sore throat Eyes: No Eye Pain, No Swelling, No Redness, No Foreign Body, No Discharge, No Vision Changes Cardiovascular : No Chest Pain, No SOB, No Dyspnea on Exertion, No Orthopnea, No Edema, No Palpitations Respiratory : No Cough, No Sputum, No Wheezing, No Smoke Exposure, No Dyspnea Gastrointestinal : Complaining of posttussive vomiting with a tinge of blood. No Diarrhea, No Constipation, No abdominal Pain, No Hematochezia, No Melena Genitourinary : no irregular bleeding, No Dysuria, No Urinary Frequency, No Hematuria, No Urinary Incontinence, No Urgency, No Flank Pain, No Urinary Flow Changes, No Hesitancy Musculoskeletal : No joint pain, No Myalgias, No Joint Swelling Skin : No Skin Lesions, No rash Neuro : No Weakness, No Numbness, No Paresthesias, No Loss of Consciousness, No Dizziness, No Headache Psych : Complaining of anxiety and a panic attack, No Depression, No SI/HI/AH/VH, No Social Issues, Heme/Lymph: No Bruising, No Bleeding,No Lymphadenopathy Endocrine : No Polyuria, No Polydipsia, No Temperature Intolerance [facility] Past Medical History Medical History Ear infection Social History Social History (Updated 10/27/24 @ 21:31 by Raquel Shane DO) Patient Tobacco Use Status: Never used Tobacco Advance Directives: No Do you have a plan to hurt others: No Plan Physical Exam ED Vital Signs: Vital Signs - 24 hr 03/25/25 03:05 Temperature 98.1 F Pulse Rate 87 Respiratory Rate 20 Blood Pressure 116/59 L Pulse Oximetry 97 Oxygen Delivery Method Room Air BMI result Body Mass Index 44.3 Const Other: Appearance: Alert. Oriented X3. No acute distress. Eyes: Pupils equal, round and reactive to light. ENT: Pharynx erythematous, enlarged bilateral tonsils, no exudates, no obvious abscesses visualized Neck: Normal inspection. Neck supple. No lymph nodes noted. No crepitus CVS: Normal heart rate and rhythm. Pulses normal. Normal S1 and S2 Respiratory: No respiratory distress. Breath sounds normal. No Wheezing. No rales Abdomen: Soft and nontender. No rigidity. No distention. Skin: Skin warm and dry. Normal skin color. Normal skin turgor. Extremities: No lower extremity edema. No Lacerations. No Rash Neuro: Oriented X 3. No motor deficit. No sensory deficit. Moving all extremities. No slurred speech. CN 2 through 12 grossly intact Psych: calm, cooperative, normal affect Course Course Course Narrative: Patient reporting a URI and a panic attack. Patient's routine labs pending along with serology. At this time, patient is calm, cooperative, not having anxiety or panic attack For symptomatic treatment, patient receiving p.o. Decadron and viscous lidocaine and Tessalon Perles Medications Administered Discontinued Medications Generic Name Dose Route Start Last Admin Trade Name Katiuska PRN Reason Stop Dose Admin Benzonatate 100 mg 03/25/25 04:53 03/25/25 05:03 Benzonatate 100 Mg Capsule PO 03/25/25 04:54 100 mg ONCE ONE Administration Dexamethasone 4 mg 03/25/25 04:53 03/25/25 05:03 Dexamethasone 4 Mg Tablet PO 03/25/25 04:54 4 mg ONCE ONE Administration Lidocaine HCl 15 ml 03/25/25 04:53 03/25/25 05:03 Lidocaine Hcl Viscous 2 % 15 Ml Solution MUCOUS MEM 03/25/25 04:54 15 ml ONCE ONE Administration Medical Decision Making Medical Decision Making [facility] Narrative: My interpretation of labs: Patient's white blood cell count within normal limits, patient chronically anemic. No new changes. URI within normal limits, serology negative, strep negative Chest x-ray does not show any acute abnormalities Patient reports an episode of posttussive emesis along with a bit of blood. Patient likely forcefully vomited, which led to a small amount of blood in the vomitus. Patient states that she has not seen any blood since then. At this time, patient no longer having anxiety or panic attack. Patient had viscous lidocaine, patient states that she feels much better now. On physical exam, her oropharynx is erythematous, but I did not see any obvious abscesses. Labs look good. An abscess is not suspected. Patient likely having viral pharyngitis, antibiotics not indicated at this time. Patient no longer having panic attack Differential Diagnosis Differential Diagnoses: The differential diagnosis associated with the presentation includes Lab Data [facility] Lab Attestation statement: I reviewed the patient's lab results. 03/25/25 04:54 03/25/25 04:54 Labs: Lab Results 03/25/25 03/25/25 03/25/25 Range/Units 03:57 04:10 04:54 WBC 10.0 (4.8-10.8) X10*3/uL RBC 5.57 H (4.20-5.50) X10*6/uL Hgb 11.5 L (12.0-16.0) g/dl Hct 37.1 (37.0-47.0) % MCV 66.6 L (80.0-98.0) fL MCH 20.6 L (27.0-33.0) pg MCHC 31.0 (31.0-35.0) g/dl RDW 18.5 H (11.0-16.0) % Plt Count 328 (160-400) X10*3/uL MPV 9.3 L (9.4-12.3) fL Immature Gran % (Auto) 0.3 (0.0-0.4) % Neut % (Auto) 68.6 (45-73) % Lymph % (Auto) 19.6 L (20-40) % [place] % (Auto) 7.7 (2-11) % Eos % (Auto) 3.3 (0-4) % Baso % (Auto) 0.5 (0-2) % Lymph # (Auto) 2.0 (1.2-4.9) X10*3/uL [place] # (Auto) 0.8 (0.1-1.2) X10*3/uL Eos # (Auto) 0.3 (0.0-0.4) X10*3/uL Baso # (Auto) 0.1 (0.0-0.2) X10*3/uL Abs Immat Gran (auto) 0.03 (0.00-0.03) X10*3/uL Absolute Neuts (auto) 6.8 (2.0-8.3) x10*3/uL Absolute Nucleated RBC 0.000 (0.0-0.012) X10*3/uL Nucleated RBC % (auto) 0.0 (0.0-0.2) /100WBC Sodium 140 (135-145) mmol/L Potassium 3.9 (3.3-5.1) mmol/L Chloride 108 (96-108) mmol/L Carbon Dioxide 25 (22-29) mmol/L Anion Gap 11 L (12-20) BUN 10 (9-16) mg/dL Creatinine 0.69 (0.5-1.4) mg/dL Estim Creat Clear Calc 138.0 Estimated GFR > 60 Random Glucose 174 H (60-115) mg/dL Calcium 9.0 (8.4-10.2) mg/dL COVID-19 ([facility]) Negative (Negative) COVID-19 Clin Com See Note Influenza Type A ([facility]) Negative (Negative) Influenza Type A (PCR) NEGATIVE (Negative) Influenza Type B ([place]) Negative (Negative) Influenza Type B (PCR) NEGATIVE (Negative) Influenza A & B Note See Note RSV RNA Qual (PCR) NEGATIVE (Negative) SARS-CoV-2 RNA (RT-PCR) NEGATIVE (Negative) S. pyogenes GrpA [place] Negative (Negative) Independent Interpretation I performed an independent interpretation of an: CT Scan Radiology Impression Discussion of test interpretation with radiology: I have reviewed the radiologist's reading. Radiologist Impression: Low inspiration. Resultant mild vascular crowding centrally with subsegmental atelectasis. No consolidation or pneumothorax/effusion. Heart size normal. No evidence of heart failure. No acute fractures. No mediastinal shift. Bilateral nipple piercings. Impression: 1. Low inspiration with central vascular crowding and subsegmental atelectasis. 2. No acute cardiopulmonary disease. Critical Care Time Critical Care Time Critical Care Time: Yes Total Critical Care Time: 35 Attestation: I have personally provided critical care time. Time includes review of lab data, radiology results, discussion with consultants, and monitoring for potential decompensation. Intervention performed as documented. Discharge Plan Discharge Clinical Impression: Anxiety, Acute viral pharyngitis Patient Disposition: Home, Self-Care Instructions: Influenza (ED), Anxiety (ED) Additional Instructions: Please follow-up with your primary care physician tomorrow. If you have any worsening or new symptoms, please return to the emergency room or call 911 Prescriptions: No Action tramadol 50 mg tablet 50 mg PO Q6H PRN (Reason: pain) Qty: 20 0RF ueerernyqr-wreklgrtdmjhw-ssxv [Fioricet] 50-300-40 mg capsule 1 cap PO Q6H PRN (Reason: headache) Qty: 20 0RF levofloxacin 750 mg tablet 750 mg PO DAILY Qty: 7 0RF ofloxacin 0.3 % drops 10 drp otic (ears) DAILY 7 Days Qty: 5 0RF prednisone 20 mg tablet 40 mg PO DAILY 5 Days Qty: 10 0RF amoxicillin 500 mg tablet 500 mg PO BID Qty: 20 0RF ibuprofen 800 mg tablet 800 mg PO Q8H PRN (Reason: pain) Qty: 30 0RF prednisone 20 mg tablet 40 mg PO DAILY Qty: 10 0RF amoxicillin-pot clavulanate 875-125 mg tablet 1 tab PO BID Qty: 14 0RF Print Language: Honduran
[2025-03-25 04:59] LABS: Basophils Absolute Auto 0.1 X10*3/uL (0.0-0.2); Basophils Percent Auto 0.5 % (0-2); Eosinophils Absolute Auto 0.3 X10*3/uL (0.0-0.4); Eosinophils Percent Auto 3.3 % (0-4); Hematocrit 37.1 % (37.0-47.0); Hemoglobin 11.5 g/dl (12.0-16.0); Imm Gran Abs Auto 0.03 X10*3/uL (0.00-0.03); Imm Gran Pct Auto 0.3 % (0.0-0.4); Lymphocytes Percent Auto 19.6 % (20-40); MANUAL DIFF FLAG NO; Mean Corpuscular Hemoglobin 20.6 pg (27.0-33.0); Mean Corpuscular Volume 66.6 fL (80.0-98.0); Mean Platelet Volume 9.3 fL (9.4-12.3); Monocytes Absolute Auto 0.8 X10*3/uL (0.1-1.2); Monocytes Percent Auto 7.7 % (2-11); Neutrophils Absolute Auto 6.8 x10*3/uL (2.0-8.3); Neutrophils Percent Auto 68.6 % (45-73); Platelet Count 328 X10*3/uL (160-400); Red Blood Count 5.57 X10*6/uL (4.20-5.50); Red Cell Distribution Width 18.5 % (11.0-16.0)
[2025-03-25] MEDS: Lidocaine HCl Viscous 2 % 15 ML SOLUTION MUCOUS MEM (05:03)
[2025-03-25] MEDS: dexAMETHasone 4 MG TABLET PO (05:03)
[2025-03-25] MEDS: Benzonatate 100 MG CAPSULE PO (05:03)
--- NOTE | 2025-03-25 05:06 | PC.NURSE ---
patient given medications per MAR. Pt tolerated well.
[2025-03-25 05:12] LABS: Anion Gap 11 (12-20); Blood Urea Nitrogen 10 mg/dL (9-16); Carbon Dioxide 25 mmol/L (22-29); Chloride 108 mmol/L (96-108); Estimated Glomerular Filt Rate > 60; Glucose Random 174 mg/dL (60-115); Potassium 3.9 mmol/L (3.3-5.1); Sodium 140 mmol/L (135-145)
[2025-03-25 05:40] LABS: Influenza A PCR NEGATIVE (Negative); Influenza B PCR NEGATIVE (Negative); Resp Syncy Virus RNA Qual PCR NEGATIVE (Negative); SARS COV2 PCR INHOUSE NEGATIVE (Negative)
[2025-03-25 06:13] VITALS: BP 124/67; PULSE 77; RESP 15; TEMP 36.5; O2SAT 98
[2025-03-25 06:14] VITALS: BP 124/67; PULSE 77; RESP 15; TEMP 36.5; O2SAT 98
== END 2025-03-25 06:14 | disposition home or self-care (01) ==
PROVIDERS: Emergency Provider Emergency Medicine
DX: J02.9 Acute pharyngitis, unspecified (principal); R05.9 Cough, unspecified; K92.0 Hematemesis; F41.0 Panic disorder [episodic paroxysmal anxiety]; Z03.818 Encounter for observation for suspected exposure to other biological agents ruled out
CPT/HCPCS: 0241U; 71045; 80048; 85025; 87502; 87635; 87651; 99283; J8540

== ENCOUNTER → 2025-03-25 04:48 | Outpatient (BNV) | payer SELFPAY | PROVIDERS: Emergency Provider Emergency Medicine; Visit Provider Radiology Diagnostic Radiology | DX: J98.11 Atelectasis (principal) | CPT/HCPCS: 71045 ==

== ENCOUNTER 2025-09-30 11:08 | Emergency (ER) | payer BC, SELFPAY ==
--- OUTSIDE RECORDS SUMMARY | 2025-09-25 16:25 | XMS_ITS | Encounter Summary ---
Author Organization [facility] Address [address] [place] [address] Phone Care Team Providers Care Staff Physical Therapist Name Role Phone Pcp, Unknown Primary Care Provider Unavailabl e Encounter Details Date Type Department Care Team (Latest Contact Info) Description 09/25/2025 4:25 PM EST - 09/25/2025 11:59 PM EST Hospital Encounter [facility] OB [address] [place] [address] Kenna Talbot MD [address], [address] [place] [address] [email or web address] Discharge Disposition: Home or Self Care Social History Tobacco Use Types Packs/Day Years Used Date Smoking Tobacco: Never Smokeless Tobacco: Never Alcohol Use Standard Drinks/Week Comments Yes 0 (1 standard drink = 0.6 oz pur e alcohol) Education Answer Date Recorded Are you interested in more education? Not on teddy e 08/27/2025 Are you concerned about learning? Not on file 08/27/2025 No 08/27/2025 No 08/27/2025 Digital Access Answer Date Recorded No 08/27/2025 No 08/27/2025 Reliable internet access at home? Not on file 08/27/2025 Device with a working camera? Not on file Comments No Sex and Gender Information Value Date Recorded Sex Assigned at Not on file Legal Sex Female 1:58 PM EST Gender Identity Not on file Sexual Orientation Not on file documented as of this encounter Medications at Time of Discharge medroxyPROGESTERo ne (PROVERA) 10 MG tablet Take 1 tablet (10 mg total) by mouth 2 (two) times a day. 42 tablet 09/23/2025 documented as of this encounter Progress Notes * Kenna Talbot MD - 09/25/2025 4:40 PM EST See TE; she is in ER at [facility] today, I let her know about the 5 cm mass, that they should or may have policy checker configuration developer who can assess if urgent procedure needed to remove today. Procedure has been moved up to oct 14 for now documented in this encounter Plan of Treatment Upcoming Encounters Date Type Department Care Team (Latest Contact Info) Description 11/02/2025 Procedure Pass OR Admitting Dept - Virtual Department [address] [place] [id number] 11/02/2025 10:19 AM EST Hospital Encounter OR Admitting Dept - Virtual Department [address] [place] [id number] Kenna Talbot MD [address] [place] [address], [address] [address] [email or web address] 11/02/2025 10:19 AM EST - 11/02/2025 11:26 AM EST Surgery OR Admitting Dept - Virtual Department [address] [place] [phone] Kenna Talbot MD [address] [place] [address], [address] [address] [email or web address] HYSTEROSCOPIC POLYPECTOMY WITH DILATION AND CURETTAGE 05/14/2026 8:00 AM EDT Office Visit [address] [address] Vickey Tay MD [address] [place] [address], [address] [place], [place] [id number] ana Scheduled Procedures Name Priority Associated Diagnoses Date/Ti me HYSTEROSCOPIC POLYPECTOMY WITH DILATION AND CURETTAGE Abnormal uterine bleeding 11/02/2025 10:19 AM EST MODIFIER MYOSURE Abnormal uterine bleeding 11/02/2025 10:19 AM EST documented as of this encounter Goals Goal Patient Goal Type Associated Problems Recent Progress Patient-Stated? Author Autogenerat ed Goal Care Plan Autogenerated Problem No Jennifer Cuellar documented as of this encounter Procedures Procedure Name Priority Date/Time Associated Diagnosis Comments US PELVIS TRANSABDOMINAL PLUS TRANSVAGINAL Routine 09/25/2025 5:10 PM EST Abnormal uterine bleeding documented in this encounter Results * US PELVIS TRANSABDOMINAL PLUS TRANSVAGINAL (09/25/2025 5:10 PM EST) Anatomical Region Laterality Modality Pelvis, Uterus/Adnexa Ultrasound 09/25/2025 5:14 PM EST Impressions 09/25/2025 9:18 PM EST 1. Heterogeneous uterus with at least one 2.1 cm mass in the lower uterine segment which is hypoechoic in nature. This could potentially represent a fibroid. 2. The endometrium appears thickened measuring 23.7 mm. There may be some vascularity within. In the endocervical region, there is a masslike structure measuring approximately 5.6 cm and hypervascularity is noted within the structure. Recommend further endometrial and cervical evaluation. 3. The right ovary appears mildly enlarged but with no discrete masses. 4. The left ovary has a similar appearance. 5. There is no free fluid. Narrative 09/25/2025 9:18 PM EST Procedure: US PELVIS TRANSABDOMINAL AND TRANSVAGINAL 09/25/2025 4:31 PM US Indications: abnormal uterine bleeding; mass at cervical os on exam Comparison: No relevant recent comparisons. Technique: Transabdominal sonography of the pelvis was performed. In addition, transvaginal imaging was performed to better evaluate the adnexae and ovaries. Color Doppler imaging was performed to assess vascularity. 3-D images were acquired and evaluated during image interpretation. Reported LMP: Unknown due to continuous daily bleeding FINDINGS: Uterus: The uterus measurements acquired; 11.50 cm x 6.69 cm x 5.10 cm with volume of 205.44 ml. The uterus is anteverted in its positioning. The myometrium is heterogeneous. There appears to be a hypoechoic mass in the anterior JOHN = 2.14 x 1.40 x 1.94 cm. Endometrium: The endometrium measures 2.37 cm. No focal endometrial masses. Possible vessel seen on transabdominal scan. No fluid is identified within the endometrial canal. The cervix appears enlarged with a mass-like appearance = 5.57 x 4.09 x 3.68 cm. Hypervascularity is seen. Ovaries: The right ovary measures 3.05 cm x 2.95 cm x 2.67 cm with volume of 12.58 ml. Appears slightly enlarged. Seen transabdominally only. Right Adnexa: No masses seen. The left ovary measures 2.44 cm x 3.15 cm x 2.68 cm with volume of 10.79 ml. Appears slightly enlarged. Seen transabdominally only. Left Adnexa: No masses seen. Cul de Sac: There is no evidence of free pelvic fluid. Tech Comments: Procedure Note Alexandru Pearce MD - 09/25/2025 Procedure: US PELVIS TRANSABDOMINAL AND TRANSVAGINAL 09/25/2025 4:31 PM US Indications: abnormal uterine bleeding; mass at cervical os on exam Comparison: No relevant recent comparisons. Technique: Transabdominal sonography of the pelvis was performed. Inaddition, transvaginal imaging was performed to better evaluate theadnexae and ovaries. Color Doppler imaging was performed to assessvascularity. 3-D images were acquired and evaluated during imageinterpretation. Reported LMP: Unknown due to continuous daily bleeding FINDINGS: Uterus: The uterus measurements acquired; 11.50 cm x 6.69 cm x 5.10 cm with volumeof 205.44 ml. The uterus is anteverted in its positioning. Themyometrium is heterogeneous. There appears to be a hypoechoic mass in theanterior JOHN = 2.14 x 1.40 x 1.94 cm. Endometrium: The endometrium measures 2.37 cm. No focal endometrial masses. Possiblevessel seen on transabdominal scan. No fluid is identified within theendometrial canal. The cervix appears enlarged with a mass-like appearance = 5.57 x 4.09 x3.68 cm. Hypervascularity is seen. Ovaries: The right ovary measures 3.05 cm x 2.95 cm x 2.67 cm with volume of 12.58ml. Appears slightly enlarged. Seen transabdominally only. Right Adnexa: No masses seen. The left ovary measures 2.44 cm x 3.15 cm x 2.68 cm with volume of 10.79ml. Appears slightly enlarged. Seen transabdominally only. Left Adnexa: No masses seen. Cul de Sac: There is no evidence of free pelvic fluid. Tech Comments: IMPRESSION: 1. Heterogeneous uterus with at least one 2.1 cm mass in the loweruterine segment which is hypoechoic in nature. This could potentiallyrepresent a fibroid. 2. The endometrium appears thickened measuring 23.7 mm. There may besome vascularity within. In the endocervical region, there is a masslikestructure measuring approximately 5.6 cm and hypervascularity is notedwithin the structure. Recommend further endometrial and cervicalevaluation. 3. The right ovary appears mildly enlarged but with no discrete masses. 4. The left ovary has a similar appearance. 5. There is no free fluid. Kenna Talbot MD IM US PELVIS Final Result documented in this encounter Visit Diagnoses Diagnosis Abnormal uterine bleeding Unspecified disorder of menstruation and other abnormal bleeding from female genital tract Abnormal uterine bleeding Unspecified disorder of menstruation and other abnormal bleeding from female genital tract documented in this encounter Additional Health Concerns Active Problems Noted Date Diagnosed Date Autogenerated Problem 09/14/2025 documented as of this encounter Care Teams Staff Physical Therapist Relationship Specialty Start Date End Date Pcp, Unknown PCP - General 08/27/25 documented as of this encounter Additional Source Comments The information contained in this document represents components of the legal health record. It is not the complete legal health record.[facility]
--- NOTE | ~2025-09-30 | US_ITS ---
EXAMINATION: US PELVIS CLINICAL INFORMATION: Pelvic pain. COMPARISON: None available. TECHNIQUE: Ultrasound of the pelvis is performed using both transabdominal transducers along with Doppler. Transvaginal imaging is not performed. Patient refused. FINDINGS: Uterus: The uterus is anteverted and measures 13 x 5 x 6 cm. And volume: 207 cc. The double wall endometrial thickness is 14 mm. No gross masses in the myometrium. The cervix is not fully evaluated. Adnexa: Ovaries demonstrated normal flow on color Doppler interrogation.. No solid or cystic mass in either adnexa. No free fluid in the cul-de-sac. Right ovary measures 3 x 3 x 2 cm. Volume: 10 cc. Left ovary measures 4 x 4 x 2 cm. Volume: 18 cc. US/US pelvic complete IMPRESSION: Limited examination demonstrated no ovarian torsion or gross uterine fibroid. Endometrial stripe measures 14 mm. Please correlate to menstrual cycle. Electronically signed by: Froilan Hayes MD 09/30/2025 12:28 PM [facility]
--- NOTE | ~2025-09-30 | US_ITS ---
EXAMINATION: US PELVIS CLINICAL INFORMATION: Pelvic pain. COMPARISON: None available. TECHNIQUE: Ultrasound of the pelvis is performed using both transabdominal transducers along with Doppler. Transvaginal imaging is not performed. Patient refused. FINDINGS: Uterus: The uterus is anteverted and measures 13 x 5 x 6 cm. And volume: 207 cc. The double wall endometrial thickness is 14 mm. No gross masses in the myometrium. The cervix is not fully evaluated. Adnexa: Ovaries demonstrated normal flow on color Doppler interrogation.. No solid or cystic mass in either adnexa. No free fluid in the cul-de-sac. Right ovary measures 3 x 3 x 2 cm. Volume: 10 cc. Left ovary measures 4 x 4 x 2 cm. Volume: 18 cc. US/US pelvic ovarian doppler IMPRESSION: Limited examination demonstrated no ovarian torsion or gross uterine fibroid. Endometrial stripe measures 14 mm. Please correlate to menstrual cycle. Electronically signed by: Frolian Hayes MD 09/30/2025 12:28 PM [facility]
[2025-09-30 11:19] VITALS: BP 138/91; PULSE 108; RESP 20; TEMP 36.6; O2SAT 96; BMI 41.8
--- NOTE | 2025-09-30 11:20 | ED.FEMALEGU ---
HPI - Female Genitourinary General Chief complaint: Vaginal Bleeding Stated complaint: vaginal bleeding Time Seen by Provider: 09/30/25 14:52 History of Present Illness ED Provider: Lamin Plascencia MD HPI Narrative: [age] abnormal uterine for several weeks to September 10 was prescribed norethindrone which she has been taking, subsequently about week ago she was prescribed another oral hormonal contraceptive try to stop her. From a [place] we plan. Continues to self multiple pads per day he has a feels significant crampy pain passing some clots. No syncope or overt lightheadedness she is not symptomatic at this time now. Related Data Previous Rx's ?Medication ?Instructions ?Recorded cflzslbpyg-vuyruhvmpmwva-mhavfmgb 1 cap PO Q6H PRN headache #20 caps 12/13/22 50 mg-300 mg-40 mg capsule (Fioricet) tramadol 50 mg tablet 50 mg PO Q6H PRN pain #20 tabs 12/13/22 amoxicillin 500 mg tablet 500 mg PO BID #20 tabs 05/08/23 ibuprofen 800 mg tablet 800 mg PO Q8H PRN pain #30 tabs 05/08/23 prednisone 20 mg tablet 40 mg (2 x 20 mg) PO DAILY #10 tabs 05/08/23 amoxicillin 875 mg-potassium 1 tab PO BID #14 tabs 10/24/24 clavulanate 125 mg tablet levofloxacin 750 mg tablet 750 mg PO DAILY #7 tabs 10/27/24 ofloxacin 0.3 % ear drops 10 drp otic (ears) DAILY 7 days #5 10/27/24 mL prednisone 20 mg tablet 40 mg (2 x 20 mg) PO DAILY 5 days 10/27/24 #10 tabs ibuprofen 800 mg tablet 800 mg PO Q8H PRN pain 4 days #12 09/30/25 tabs tranexamic acid 650 mg tablet 1,300 mg (2 x 650 mg) PO TID 5 09/30/25 days #30 tabs Allergies Allergy/AdvReac Type Severity Reaction Status Date / Time No Known Allergies Allergy Verified 09/30/25 11:25 [facility] Past Medical History Medical History Ear infection Social History Social History (Updated 10/27/24 @ 21:31 by Raquel Shane DO) Patient Tobacco Use Status: Never used Tobacco Advance Directives: No Advance Directives Information Provided: No Physical Exam Exam: Exam: EXAM: Gen: Alert, awake, well appearing, well hydrated. Head: Atraumatic Eyes: Anicteric, Normal conjunctiva. ENT: Moist mucosa, no pallor. ? Neck: Supple. Skin: ?No observable rash or bruising on exposed or examined skin Respiratory: Breathing comfortably, No distress.Clear to auscultation bilaterally, symmetric chest expansion, No wheeze, rales, ronchi. Cardiovascular: Regular rate and rhythm. No murmurs or rub. Well perfused periphery, warm extremities. No edema. ? Abdominal: No focal tenderness. Soft, no objective distension. No palpable masses or obvious organomegaly. ?No guarding, no rebound tenderness or other peritoneal findings. : No flank tenderness. Deferred pelvic Neuro: Alert. Gross movement of all extremities intact. ? Psych: Calm. Cooperative. MSK: No grossly visible deformity. Vital signs: See flowsheet Vital Signs: Vital Signs: Last Vital Signs Temp 98.1 F 09/30/25 18:47 Pulse 86 09/30/25 18:47 Resp 16 09/30/25 18:47 BP 136/84 09/30/25 18:47 Pulse Ox 98 09/30/25 18:47 O2 Del Method Room Air 09/30/25 18:47 BMI result Body Mass Index 41.8 Course Course Course Narrative: This is an RME: Additional HPI, ROS, PE not included below will be deferred to primary provider. RME assessment and note performed by: Mamie Bañuelos PA-C This is a [id number]-female who presents to the ER with complaints of worsening vaginal bleeding since sunday. Reports that she has had abnormal uterine bleeding since March. Reports that she has been followed by [facility] and was prescribed a medication which was switched last week (sun). Has had worsening bleeding since. Reports that sunday 4 days 4 boxes of 32 pack overnight saturating Reports that she now is having pelvic pain. Plan: Medications Administered Discontinued Medications Generic Name Dose Route Start Last Admin Trade Name Freq PRN Reason Stop Dose Admin Acetaminophen 975 mg 09/30/25 12:57 09/30/25 13:06 Acetaminophen 325 Mg Tablet PO 09/30/25 12:58 975 mg ONCE ONE Administration Tranexamic Acid 1,000 mg/ 260 mls @ 32.5 mls/hr 09/30/25 15:07 09/30/25 18:39 Sodium Chloride IV 09/30/25 23:06 Infused .Q8H ONE Infusion Iron Sucrose 200 mg/ Iron 265 mls @ 176.667 mls/hr 09/30/25 15:08 09/30/25 18:39 Sucrose 100 mg/ Sodium IV 09/30/25 16:37 Infused Chloride ONCE ONE Infusion Ketorolac Tromethamine 30 mg 09/30/25 15:08 09/30/25 15:29 Ketorolac Tromethamine 30 Mg/Ml Vial IVPUSH 09/30/25 15:09 30 mg ONCE ONE Administration Medical Decision Making Medical Decision Making MDM Narrative: Medical Decision Making: Acute on chronic abnormal 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 Hemoglobin drop but only compared to March, 2 points. Stable hemodynamics. No significant tenderness. No rapid exsanguination describe she looks well she is not pale or ill Offered TXA and Toradol for analgesia. Iron infusion Again she does not note that her health care analyst found a cervical mass but that it was not a source of bleeding and she will need elective excision which she believes has been scheduled Preliminary Favored Differential Diagnosis: Abnormal uterine bleeding, dysmenorrhea, anemia, cervical mass among additional considered etiologies Testing Interpreted Independently: ?See below for details Radiology or Lab testing Results Reviewed: ?See below for details Consults: ?See below for details Independent Historians/External Chart Reviews: ?See below for details Social Determinants of Health Impacting MDM/Planning: ?See below for details Lab Data 09/30/25 12:33 09/30/25 12:33 Labs: Lab Results 09/30/25 Range/Units 12: WBC 9.8 (4.8-10.8) X10*3/uL RBC 5.02 (4.20-5.50) X10*6/uL Hgb 9.5 L (12.0-16.0) g/dl Hct 31.6 L (37.0-47.0) % MCV 62.9 L (80.0-98.0) fL MCH 18.9 L (27.0-33.0) pg MCHC 30.1 L (31.0-35.0) g/dl RDW 19.9 H (11.0-16.0) % Plt Count 460 H D (160-400) X10*3/uL MPV 9.0 L (9.4-12.3) fL Immature Gran % (Auto) 0.6 H (0.0-0.4) % Neut % (Auto) 72.6 (45-73) % Lymph % (Auto) 15.5 L (20-40) % Webster % (Auto) 7.2 (2-11) % Eos % (Auto) 3.7 (0-4) % Baso % (Auto) 0.4 (0-2) % Lymph # (Auto) 1.5 (1.2-4.9) X10*3/uL Webster # (Auto) 0.7 (0.1-1.2) X10*3/uL Eos # (Auto) 0.4 (0.0-0.4) X10*3/uL Baso # (Auto) 0.0 (0.0-0.2) X10*3/uL Abs Immat Gran (auto) 0.06 H (0.00-0.03) X10*3/uL Absolute Neuts (auto) 7.1 (2.0-8.3) x10*3/uL Absolute Nucleated RBC 0.000 (0.0-0.012) X10*3/uL Nucleated RBC % (auto) 0.0 (0.0-0.2) /100WBC Sodium 136 (135-145) mmol/L Potassium 3.7 (3.3-5.1) mmol/L Chloride 109 H (96-108) mmol/L Carbon Dioxide 23 (22-29) mmol/L Anion Gap 8 L (12-20) BUN 7 L (9-16) mg/dL Creatinine 0.74 (0.5-1.4) mg/dL Estim Creat Clear Calc 147.6 Estimated GFR > 60 Random Glucose 286 H (60-115) mg/dL Calcium 8.7 (8.4-10.2) mg/dL Iron 27 L (30-160) mcg/dL TIBC 349 (228-428) mcg/dL % Saturation 8 L (15-50) % Unsat Iron Binding 322 ug/dL Total Bilirubin 0.5 (0.0-1.0) mg/dL Direct Bilirubin 0.2 (0.0-0.5) mg/dL AST 17 (5-31) U/L ALT 19 (0-31) U/L Alkaline Phosphatase 65 (39-117) U/L Total Protein 7.0 (6.5-8.0) g/dL Albumin 4.3 (3.5-5.0) g/dL Beta HCG, Quant < 2 mIU/mL Blood Type O Positive Antibody Screen NEGATIVE Discharge Plan Discharge Clinical Impression: Vaginal bleeding Patient Disposition: Home, Self-Care Instructions: Abnormal (Dysfunctional) Uterine Bleeding (ED), Menorrhagia (ED) Additional Instructions: Take the medication as prescribed. Call your primary doctor and your OBGYN for follow up within 1 week Prescriptions: New tranexamic acid 650 mg tablet 1,300 mg PO TID 5 Days Qty: 30 0RF ibuprofen 800 mg tablet 800 mg PO Q8H PRN (Reason: pain) 4 Days Qty: 12 0RF No Action tramadol 50 mg tablet 50 mg PO Q6H PRN (Reason: pain) Qty: 20 0RF zwduzpknzb-mvfvaflpcjgst-othj [Fioricet] 50-300-40 mg capsule 1 cap PO Q6H PRN (Reason: headache) Qty: 20 0RF levofloxacin 750 mg tablet 750 mg PO DAILY Qty: 7 0RF ofloxacin 0.3 % drops 10 drp otic (ears) DAILY 7 Days Qty: 5 0RF prednisone 20 mg tablet 40 mg PO DAILY 5 Days Qty: 10 0RF amoxicillin 500 mg tablet 500 mg PO BID Qty: 20 0RF ibuprofen 800 mg tablet 800 mg PO Q8H PRN (Reason: pain) Qty: 30 0RF prednisone 20 mg tablet 40 mg PO DAILY Qty: 10 0RF amoxicillin-pot clavulanate 875-125 mg tablet 1 tab PO BID Qty: 14 0RF Stand Alone Forms: Work/School Release Interventions: ED Discharge Assessment Last Done: 09/30/25 18:47 Discharge Date/Time: 09/30/25 18:48 Print Language: [place]an
[2025-09-30 12:38] LABS: MANUAL DIFF FLAG NO
[2025-09-30 12:39] LABS: Hematocrit 31.6 % (37.0-47.0); Hemoglobin 9.5 g/dl (12.0-16.0); Imm Gran Abs Auto 0.06 X10*3/uL (0.00-0.03); Imm Gran Pct Auto 0.6 % (0.0-0.4); Lymphocytes Absolute Auto 1.5 X10*3/uL (1.2-4.9); Mean Corpuscular HGB Conc 30.1 g/dl (31.0-35.0); Mean Corpuscular Hemoglobin 18.9 pg (27.0-33.0); Mean Corpuscular Volume 62.9 fL (80.0-98.0); NRBC Abs Auto 0.000 X10*3/uL (0.0-0.012); NRBC Pct Auto 0.0 /100WBC (0.0-0.2); Platelet Count 460 X10*3/uL (160-400); Red Blood Count 5.02 X10*6/uL (4.20-5.50); White Blood Count 9.8 X10*3/uL (4.8-10.8)
[2025-09-30 12:57] LABS: Alanine Aminotransferase 19 U/L (0-31); Albumin Level 4.3 g/dL (3.5-5.0); Alkaline Phosphatase 65 U/L (39-117); Anion Gap 8 (12-20); Aspartate Amino Transferase 17 U/L (5-31); Blood Urea Nitrogen 7 mg/dL (9-16); Calcium 8.7 mg/dL (8.4-10.2); Carbon Dioxide 23 mmol/L (22-29); Chloride 109 mmol/L (96-108); Creatinine Clr Calc Pharmacy 147.6; Estimated Glomerular Filt Rate > 60; Potassium 3.7 mmol/L (3.3-5.1); Sodium 136 mmol/L (135-145); Total Protein 7.0 g/dL (6.5-8.0)
[2025-09-30 15:11] LABS: Iron 27 mcg/dL (30-160); Percent Iron Saturation 8 % (15-50); Total Iron Binding Capacity 349 mcg/dL (228-428); Unsaturated Iron Binding 322 ug/dL
[2025-09-30] MEDS: Tranexamic Acid 1,000 MG in 0.9 % Sodium Chloride 250 ML 32.5 MG IV (15:29)
[2025-09-30 15:35] VITALS: BP 145/96; PULSE 87; RESP 18; TEMP 37.1; O2SAT 98
[2025-09-30] MEDS: Iron Sucrose Complex 200 MG, Iron Sucrose Complex 100 MG in 0.9 % Sodium Chloride 250 ML 176.67 MG IV (16:20)
--- NOTE | 2025-09-30 16:22 | PC.NURSE ---
Confirmed with neurology technician prior to Iron Infusion administration. Med to be given over 90 minutes and to monitor for hypotension.
[2025-09-30 16:25] VITALS: BP 136/84; PULSE 86; RESP 16
--- NOTE | 2025-09-30 17:35 | PC.NURSE ---
Provider stating infuse tranexamic acid faster than 8 hours, called pharmacy pharmacist stating it can infuse over 10 minutes.
[2025-09-30 18:47] VITALS: BP 136/84; PULSE 86; RESP 16; TEMP 36.7; O2SAT 98
--- OUTSIDE RECORDS SUMMARY | 2025-09-30 23:46 | XMS_ITS | Clinical Summary ---
Author Organization [facility] Address [address] [place], [place] [id number] Phone Care Team Providers Care Pyridine Operator Name Role Phone Pcp, Unknown Primary Care Provider Unavailabl e Allergies No known active allergies Medications medroxyPROGESTE Og (PROVERA) 10 MG tablet Take 1 tablet (10 mg total) by mouth 2 (two) times a day. 42 tablet 09/23/2025 Active norethindrone (AYGESTIN) 5 mg tablet Take 1 tablet (5 mg total) by mouth 2 (two) times a day for 14 days. 28 tablet 09/09/2025 Active Problems Problem Noted Date Diagnosed Date Abnormal uterine bleeding 09/09/2025 Overview (09/09/2025): Long h/o abnormal bleeding, prolonged or irregular cycles Risk factors for EIN, plus mass at cervical os- may be cervical or endometrial in origin Assessment & Plan (09/09/2025 1:07 PM EST): If bx result benign, advise hysteroscopy with polypectomy and D&C; SHG would not be helpful, though an US can demonstrate amount of endometrial tissue Procedure described, R&B, case request placed pending the bx result In meantime, try norethindrone 5 mg BID x 14 days Cervical mass 09/09/2025 Overview (09/09/2025): With prolonged bleeding, may be cervical or endometrial in origin Encounters Date Type Department Care Team Description 09/30/2025 Telephone [facility] [address] [place] [address] Kenna Talbot MD 09/29/2025 Telephone [facility] [address] [place] [address] [place] [address] Kenna Talbot MD 09/25/2025 4:25 PM EST - 09/25/2025 11:59 PM EST Hospital Encounter [facility] [place] [place] [address] [place] [address] Kenna Talbot MD Discharge Disposition: Home or Self Care 09/23/2025 Telephone [facility] [address] [place] [address] [place] [address] Rahda Lam RN AUB 09/09/2025 10:20 AM EST Office Visit [facility] [address] [place] [address] [place] [address] Kenna Talbot MD Abnormal uterine bleeding (Primary Dx); Cervical mass; Screening for cervical cancer 09/09/2025 Telephone [facility] [address] [place] [address] Kenna Talbot MD from Last 3 Months Family History Medical History Relation Comments Diabetes Mother Hypertension Mother Relation Status Comments Mother Alive Social History Tobacco Use Types Packs/Day Years Used Date Smoking Tobacco: Never Smokeless Tobacco: Never Tobacco Cessation:Counseling Given: Not Answered Alcohol Use Standard Drinks/Week Comments Yes 0 [...] on file Sexual Orientation Not on file Last Filed Vital Signs Vital Sign Reading Time Taken Comments Blood Pressure 128/72 09/09/2025 10:39 AM EST Pulse - - Temperature - - Respiratory Rate - - Oxygen Saturation - - Inhaled Oxygen Concentration - - Weight 128.4 kg (283 lb) 09/09/2025 10:39 AM EST Height 160 cm (5' 3 ) 09/09/2025 10:39 AM EST Body Mass Index 50.13 09/09/2025 10:39 AM EST Plan of Treatment Upcoming Encounters Date Type Department Care Team (Latest Contact Info) Description 11/02/2025 Procedure Pass OR Admitting Dept - Virtual Department [address] [place] [address] 11/02/2025 10:19 AM EST Hospital Encounter OR Admitting Dept - Virtual Department [address] [place] [address] Kenna Talbot MD [address] [place] [address] [email or web address] 11/02/2025 10:19 AM EST - 11/02/2025 11:26 AM EST Surgery OR Admitting Dept - Virtual Department [address] [place] [address] Kenna Talbot MD [address] [place] [address] [email or web address] HYSTEROSCOPIC POLYPECTOMY WITH DILATION AND CURETTAGE 05/14/2026 8:00 AM EDT Office Visit [address] [address] Vickey Tay MD [address] [place] [address] [address] [place], [place] [phone] [email or web address] Scheduled Procedures Name Priority Associated Diagnoses Date/Ti nd HYSTEROSCOPIC POLYPECTOMY WITH DILATION AND CURETTAGE Abnormal uterine bleeding 11/02/2025 10:19 AM EST MODIFIER MYOSURE Abnormal uterine bleeding 11/02/2025 10:19 AM EST Health Maintenance Due Date Last Done Comments Adult Td,Tdap Booster 1990 DEPRESSION SCREENING 2002 HEPATITIS C SCREENING 2008 HIV ONE-TIME SCREENING (18-6 5 YEARS) 2008 SCREENING FOR DIABETES 2025 INFLUENZA VACCINE (#1) 2025 COVID-19 VACCINE (2024-2 6 season) 2025 PAP SMEAR 09/09/2028 09/09/2025 SMOKING STATUS SCREENING (On ce After 26 Yrs) Completed 09/09/2025 HEPATITIS A VACCINES Aged Out No long er eligible based on patient's age to complete this topic HIB VACCINES Aged Out No longer eligi ble based on patient's age to complete this topic MENINGOCOCCAL VACCINES (ACWY) Aged Out No longer eligible based on patient's age to complete this topic MENINGOCOCCAL VACCINES (B) Aged Out N o longer eligible based on patient's age to complete this topic PNEUMOCOCCAL VACCINES (0-49 years) Aged Out No longer eligible based on patient's age to complete this topic Goals Goal Patient Goal Type Associated Problems Recent Progress Patient-Stated? Author Autogenerat ed Goal Care Plan Autogenerated Problem No PoloJennifer monahan [employer] Not on file Procedures Procedure Name Priority Date/Time Associated Diagnosis Comments US PELVIS TRANSABDOMINAL PLUS TRANSVAGINAL Routine 09/25/2025 5:10 PM EST Abnormal uterine bleeding TISSUE EXAM Routine 09/09/2025 11:38 AM EST Abnormal uterine bleeding Cervical mass PAP TEST Routine 09/09/2025 11:38 AM EST Cervical mass Screening for cervical cancer CERVICAL CANCER SCREENING Routine 09/09/2025 11:38 AM EST Cervical mass Screening for cervical cancer GENETIC PROBE AMPLIFICATION FOR HUMAN PAPILLOMAVIRUS Routine 09/09/2025 11:38 AM EST Cervical mass Screening for cervical cancer from Last 3 Months Results * US PELVIS TRANSABDOMINAL PLUS TRANSVAGINAL [...] is no free fluid. Kenna Talbot MD [facility] US PELVIS Final Result * Human Papillomavirus (HPV), Nucleic Acid Amplification (09/09/2025 11:38 AM EST) HPV 16 Negative 09/15/2025 3:38 PM EST [facility] HPV 18 Negative 09/15/2025 3:38 PM EST [facility] HPV 45 Negative 09/15/2025 3:38 PM EST [facility] HPV 31 Negative 09/15/2025 3:38 PM EST [facility] HPV 51 Negative 09/15/2025 3:38 PM EST [facility] HPV 52 Negative 09/15/2025 3:38 PM EST [facility] HPV 33, 58 Negative 09/15/2025 3:38 PM EST [facility] HPV 35, 39, 68 Negative 09/15/2025 3:38 PM EST [facility] HPV 56, 59, 66 Negative 09/15/2025 3:38 PM EST [facility] HPV Disclaimer: Performed by real-time polymerase chain reaction (PCR) at [facility], [address] [place] [address] using the FDA-approved BD Onclarity HPV Assay with extended genotyping. Uses of the assay in scenarios other than those approved by the FDA should be considered off-label use. The accuracy and precision of this test for all other off-label specimen sources has been verified in the Cytopathology Laboratory of the [facility] and has not been cleared or approved by the U.S. Food and Drug Administration. Clinical correlation is advised. The assay assesses the E6/E7 DNA target and utilizes human beta globin as an internal control. Cytology and HPV testing are screening assays and should not be used as the sole means of detecting cancer. False-positives and false-negatives can occur. 09/15/2025 3:38 PM EST [facility] Pap Collection (Cervix) 09/09/2025 11:38 AM EST 09/10/2025 8:44 AM EST us Kenna Talbot MD LAB GENERAL ORDERABLES Final Res ult [facility] [address] [place] [address] * Pap Test (09/09/2025 11:38 AM EST) Final Diagnosis A. PAP TEST: CERVIX SPECIMEN ADEQUACY: Satisfactory for evaluation; transformation zone present. INTERPRETATION: Negative for Intraepithelial Lesion or Malignancy - Reactive. HPV RESULTS: HPV 16: Negative HPV 18: Negative HPV 45: Negative HPV 31: Negative HPV 51: Negative HPV 52: Negative HPV 33, 58: Negative HPV 35, 39, 68: Negative HPV 56, 59, 66: Negative 09/15/2025 3:38 PM [facility] at 1538 EST Reviewed by MOUNA Rabago(ASCP) Pap Methodology This specimen was successfully pre-screened using the [employer] Staffing[employer] Imaging System. Selected martin from the drug abuse technician were reviewed by a Wholesale Account Manager. If indicated, this case was reviewed by a Pathologist. The Pap test is a screening test primarily for detecting cervical Squamous Cell Carcinoma and its precursors. The test has an inherent but low probability of error, with liquid-based methods having a reported false negative rate of about 2%. Regular sampling and follow-up of unexplained clinical signs and symptoms are recommended to minimize false negative results. 09/15/2025 3:38 PM [facility] Clinical History ICD-10: Cervical mass ICD-10: Screening for cervical cancer 09/15/2025 3:38 PM [facility] LMP? N/A 09/15/2025 3:38 PM [facility] Gross Description A. PAP TEST: CERVIX: 1 Preservcyt vial received labeled with two patient identifiers. 1 ThinPrep slide prepared. Glacial acetic acid wash performed. 09/15/2025 3:38 PM [facility] A. Adequacy Satisfactory for evaluation; transformation zone present. 09/15/2025 3:38 PM [facility] A. Interpretation Negative for Intraepithelial Lesion or Malignancy - Reactive. 09/15/2025 3:38 PM EST [facility] Pap Collection (Cervix) 09/09/2025 11:38 AM EST 09/09/2025 11:38 AM EST us Kenna Talbot MD LAB CYTOLOGY ORDERABLES Final Re sult [facility] [address] [place] [address] * Tissue Exam (09/09/2025 11:38 AM EST) Final Pathologic Diagnosis CERVIX; BIOPSY: Ulcerated endocervical polyp with squamous metaplasia, with inflammation and necrosis. (See note) Note: P-16 and CEA stains are focally positive. There is focal cytologic atypia, which is difficult to assess given the degree of inflammation and trauma, and follow up is recommended. 09/14/2025 2:15 PM [facility] at 1415 EST Clinical History Abnormal bleeding, risk factors for EIN; mass at cervical opening, may be endometrial in origin or cervical, exam limited by habitus 09/14/2025 2:15 PM [facility] Gross Description A. CERVIX; CERVIX: Received in formalin is a 0.8 x 0.8 x 0.4 cm aggregate of irregular olguin-pink soft tissue fragments which are submitted in toto in a single cassette labeled A1. 09/14/2025 2:15 PM [facility] Grossed By Trevor Maharaj 09/14/2025 2:15 PM [facility] Result Priority Level Routine 09/14/2025 2:15 PM [facility] Disclaimer By their signature above, the pathologist listed as making the Final Diagnosis certifies that they have personally reviewed the case and confirmed the diagnosis. All slides and stains were of sufficient quality to establish the diagnosis, unless otherwise stated. Due to loss of elastic tension and/or tissue shrinkage in formalin, the clinical sizes of tissue specimens may be larger than those provided in this report. Unless otherwise stated above, immunohistochemical, in-situ hybridization and immunofluorescence tests were performed at the Anatomic Pathology laboratory. These tests were developed, and their performance characteristics were determined by the laboratory. Appropriate controls were performed and evaluated. Certain tests may not have been validated in decalcified tissues, therefore results in decalcified tissues should be interpreted with caution. These tests have not been cleared or approved by the U.S. Food and Drug Administration (FDA); however, the FDA has determined that such clearance or approval is not necessary. These tests are for clinical purposes and should not be regarded as investigational or for research. 09/14/2025 2:15 PM EST [facility] Tissue - General (Cervix) Non-Blood Collection / Unknown 09/09/2025 11:38 AM EST 09/09/2025 11:38 AM EST us Kenna Talbot MD LAB PATHOLOGY ORDERABLES Final R esult [facility] [address] [place] [address] from Last 3 Months Additional Health Concerns Active Problems Noted Date Diagnosed Date Autogenerated Problem 09/14/2025 Insurance [facility] PPO [facility] PPO Care Teams Pyridine Operator Relationship Specialty Start Date End Date Pcp, Unknown PCP - General 08/27/25 Additional Source Comments The information contained in this document represents components of the legal health record. It is not the complete legal health record.[facility]
--- OUTSIDE RECORDS SUMMARY | 2025-09-30 23:46 | XMS_ITS | Encounter Summary ---
Author Organization [facility] Address [address] [place] [address] Phone Care Team Providers Care Senior Hardware Engineer Name Role Phone Pcp, Unknown Primary Care Provider Unavailabl e Encounter Details Date Type Department Care Team ([facility] Contact Info) Description 09/29/2025 Telephone [facility] [address] [place] [address] [place] [address] Markus Talbot MD [address] [facility], [address] [place] [address] Social History Tobacco Use Types Packs/Day Years [...] on file documented as of this encounter Progress Notes * Bigg Loo - 09/30/2025 11:23 AM EST Attempted to contact pt to offer 10/14, pt answered call while being triaged and checked in at the hospital. Did not ask what hospital since pt sounded lethargic and was actively being triaged. Apologized and informed I would reach out at a later time to discuss surgery, pt agreeable. * Bigg Loo - 09/29/2025 1:59 PM EST Would you be willing to see the pt on 10/13 after your other cases? * Markus Talbot MD - 09/29/2025 1:37 PM EST Myrtle Bigg, Can the hysteroscopy be moved up for Dessirre any sooner? She has a mass in cervix, and lots of bleeding Thanks markus documented in this encounter Plan of Treatment Upcoming Encounters Date Type Department Care Team (Latest Contact Info) Description 11/02/2025 Procedure Pass OR Admitting Dept - Virtual Department [address] [place] [address] 11/02/2025 10:19 AM EST Hospital Encounter OR Admitting Dept - Virtual Department [address] [place] [address] Markus Talbot MD [address] [place] [address], [address] [address] 11/02/2025 10:19 AM EST - 11/02/2025 11:26 AM EST Surgery OR Admitting Dept - Virtual Department [address] [place] [address] Markus Talbot MD [address] [place] [address], [address] [address] HYSTEROSCOPIC POLYPECTOMY WITH DILATION AND CURETTAGE 05/14/2026 8:00 AM EDT Office Visit [facility] [address] [place] [address] Vickey Tay MD [address] [facility], [address] [place] [address] [email or web address] Scheduled Procedures Name Priority Associated Diagnoses Date/Ti me HYSTEROSCOPIC POLYPECTOMY WITH DILATION AND CURETTAGE Abnormal uterine bleeding 11/02/2025 10:19 AM EST MODIFIER MYOSURE Abnormal uterine bleeding 11/02/2025 10:19 AM EST documented as of this encounter Goals Goal Patient Goal Type Associated Problems Recent Progress Patient-Stated? Author Autogenerat ed Goal Care Plan Autogenerated Problem No Jennifer Cuellar documented as of this encounter Visit Diagnoses Not on filedocumented in this encounter Additional Health Concerns Active Problems Noted Date Diagnosed Date Autogenerated Problem 09/14/2025 documented as of this encounter Care Teams Senior Hardware Engineer Relationship Specialty Start Date End Date Pcp, Unknown PCP - General 08/27/25 documented as of this encounter Additional Source Comments The information contained in this document represents components of the legal health record. It is not the complete legal health record.[facility]
--- OUTSIDE RECORDS SUMMARY | 2025-09-30 23:46 | XMS_ITS | Encounter Summary ---
Author Organization [facility] Address [address] [place] [address] Phone Care Team Providers Care Nut Picker Name Role Phone Pcp, Unknown Primary Care Provider Unavailabl e Encounter Details Date Type Department Care Team ([facility] Contact Info) Description 09/30/2025 Telephone [facility] [address] [place] [address] Kenna Talbot MD [address] [facility] [address], [address] [place] [address] Social History Tobacco Use Types Packs/Day Years [...] Progress Notes * Kenna Talbot MD - 09/30/2025 5:06 PM EST We rafa Higginbotham went to the [facility] just now I let her know of this 5 cm cervical mass- may be part of cervix or inside the cervix- needs a morerepresentative bx and ideally removal in the OR, which is planned later this month I recommended she tell the ER MD of this, there should or may be a director customer oncall at [facility] who shouldassess if this needs to be done there urgently to get the bleeding to stop documented in this encounter Plan of Treatment Upcoming Encounters Date Type Department Care Team (Latest Contact Info) Description 11/02/2025 Procedure Pass OR Admitting Dept - Virtual Department [address] [place] [address] 11/02/2025 10:19 AM EST Hospital Encounter OR Admitting Dept - Virtual Department [address] [place] [address] Kenna Talbot MD [address] [place] [address], [address] [address] [email or web address] 11/02/2025 10:19 AM EST - 11/02/2025 11:26 AM EST Surgery OR Admitting Dept - Virtual Department [address] [place] [address] Kenna Talbot MD [address] [place] [address] [email or web address] HYSTEROSCOPIC POLYPECTOMY WITH DILATION AND CURETTAGE 05/14/2026 8:00 AM EDT Office Visit [address] [phone] Vickey Tay MD [address] [place] [address] [address] [place], [place] [phone] [email or web address] Scheduled Procedures Name Priority Associated Diagnoses Date/Ti [...] documented as of this encounter Care Teams Nut Picker Relationship Specialty Start Date End Date Pcp, Unknown PCP - General 08/27/25 documented as of this encounter Additional Source Comments The information contained in this document represents components of the legal health record. It is not the complete legal health record.[facility]
--- OUTSIDE RECORDS SUMMARY | 2025-09-30 23:46 | XMS_ITS | Encounter Summary ---
Author Organization [facility] Address [address] [place] [address] Phone Care Team Providers Care International Student Counselor Name Role Phone Pcp, Unknown Primary Care Provider Unavailabl e Reason for Visit * Reason Onset Date Comments AUB 09/23/2025 Encounter Details Date Type Department Care Team ([facility] Contact Info) Description 09/23/2025 Telephone [facility] [address] [place] [address] [place] [address] Radha Lam, RN [address] [place] [phone] [email or web address] AUB Social History Tobacco Use Types Packs/Day Years [...] as of this encounter Progress Notes * Radha Lam, GAMA - 09/29/2025 11:50 AM EST Images from the original note were not included. Bedford, Maryann A, MD to oriana Conn Rn (Selected Message) RP 09/29/25 11:46 AM Bleeding sounds extremely heavy, best to go to the ER Can take NSAID with the progestin Sw patient, advised of message from RP, patient states will go to [facility] ER for evaluation, advised to call office back once discharged so we can follow up with her Hold to follow up with patient * Bhavana Green LPN - 09/29/2025 11:31 AM EST Neftaly is calling this morning to let us know that she is basically bed bound today. She is having a lot of cramping causing a lot of pain. Her bleeding is still heavy. She missed the second dose of provera yesterday and has not taken today's dose yet as she is not sure if she should take the midol instead as she is suffering with pain. Advised that she needs to take the provera in order to slow the bleeding. She states yesterday at work she wore a regular pad and since last night has been wearing overnight pad. Woke up at 6 am changed it 30 minutes later, then again at 8 am, 9:20, 10:22 and now again when we get off the phone. She passed a large clot at 10:22 that she states was larger than a quarter. Advised patient that I would let RP know and verify that Midol or Ibuprofen can be taken with Provera. Patient thinks it is one or the other. Advised that this should be fine but will check. * Maryann Talbot MD - 09/23/2025 1:34 PM ESTAddended by: MARYANN TALBOT on: 09/23/2025 01:34 PM Modules accepted: Orders * Maryann Talbot MD - 09/23/2025 1:31 PM EST We spoke, the first 2 days she had decrease in flow, then it increased again. Tomorrow will be the last pill; I will send a Rx for medroxyprogesterone * Radha Lam, RN - 09/23/2025 9:14 AM EST Patient called office stating is continuing to have vaginal bleeding, states has been taking Aygestin regularly and has not missed any doses, states only has two pills left but continues to bleed, states has to change pad frequently throughout the day but not more than once an hour, wants to know if should still take aygestin and if so will need refill, patient scheduled for pelvic US 09/25, advised would send message to RP to review documented in this encounter Plan of Treatment Upcoming Encounters Date Type Department Care Team (Latest Contact Info) Description 11/02/2025 Procedure Pass OR Admitting Dept - Virtual Department [address] [place] [address] 11/02/2025 10:19 AM EST Hospital Encounter OR Admitting Dept - Virtual Department [address] [place] [address] Maryann Talbot MD [address] [place] [address], [address] [address] 11/02/2025 10:19 AM EST - 11/02/2025 11:26 AM EST Surgery OR Admitting Dept - Virtual Department [address] [place] [address] Maryann Talbot MD [address] [place] [address], [address] [address] [email or web address] HYSTEROSCOPIC POLYPECTOMY WITH DILATION AND CURETTAGE 05/14/2026 8:00 AM EDT Office Visit [address] [place] [address] Vickey Tay MD [address] [facility], [address] [place] [address] [email or web address] Scheduled Procedures Name Priority Associated Diagnoses Date/Ti [...] documented as of this encounter Care Teams International Student Counselor Relationship Specialty Start Date End Date Pcp, Unknown PCP - General 08/27/25 documented as of this encounter Additional Source Comments The information contained in this document represents components of the legal health record. It is not the complete legal health record.[facility]
== END 2025-09-30 18:48 | disposition home or self-care (01) ==
PROVIDERS: Physician Assistant Medical; Emergency Provider Emergency Medicine
DX: N93.9 Abnormal uterine and vaginal bleeding, unspecified (principal); N88.9 Noninflammatory disorder of cervix uteri, unspecified; R10.20 Pelvic and perineal pain unspecified side
CPT/HCPCS: 36415; 76856; 80048; 80076; 83540; 84702; 85025; 86850; 86900; 86901; 93975; 96365; 96366; 96375; 99284; J1756; J1885; J2151

== ENCOUNTER → 2025-09-30 11:39 | Outpatient (BNV) | payer BC, SELFPAY | PROVIDERS: Visit Provider Radiology Diagnostic Radiology | DX: N85.00 Endometrial hyperplasia, unspecified (principal) | CPT/HCPCS: 93975 ==